=== PATIENT | male | born 1945 | race Two or more races ===

== ENCOUNTER 2017-08-22 01:56 | Inpatient (IN) | payer MEDICARE, MEDICAID ==
[2017-08-22] VITALS (8 sets, daily range): BP systolic 104–156; BP diastolic 64–93
[~2017-08-22] VITALS: Ht 198.1 cm; Wt 104.3 kg
[2017-08-22] MEDS ORDERED: BENAZEPRIL HCL20 MG ORAL (02:00)
[2017-08-22] MEDS ORDERED: PROSCAR5 MG ORAL (02:00)
[2017-08-22] MEDS ORDERED: OMEPRAZOLE20 M2 ORAL (02:00)
[2017-08-22] MEDS ORDERED: TAMSULOSIN HCL0.4 MG ORAL (02:00)
[2017-08-22] MEDS ORDERED: HYDROCHLOROTHIA25 MG ORAL (02:00)
[2017-08-22] MEDS ORDERED: AMLODIPINE BESYL5 MG ORAL (02:00)
[2017-08-22 02:15] LABS: MEAN CORPUSCULAR HEMOGLOBIN 32.6 PG (27.0-31.0); MEAN CORPUSCULAR HGB CONC 34.6 G/DL (32.0-36.0); MEAN CORPUSCULAR VOLUME 94 FL (80-99); MEAN PLATELET VOLUME 8.2 FL (6.5-10.1); PLATELET COUNT 208 K/UL (150-450); RED BLOOD COUNT 5.07 M/UL (4.70-6.10); RED CELL DISTRIBUTION WIDTH 10.3 % (11.6-14.8); WHITE BLOOD COUNT 11.8 K/UL (4.8-10.8)
[2017-08-22 02:33] LABS: ANION GAP 10 mmol/L (5-15); CALCIUM 8.9 MG/DL (8.5-10.1); CARBON DIOXIDE 29 MMOL/L (21-32); CHLORIDE 97 MMOL/L (98-107); CREATININE 1.4 MG/DL (0.55-1.30); POTASSIUM 3.2 MMOL/L (3.5-5.1); SODIUM 136 MMOL/L (136-145)
[2017-08-22 02:44] LABS: ALANINE AMINOTRANSFERASE 84 U/L (12-78); ALBUMIN/GLOBULIN RATIO 0.9 (1.0-2.7); ASPARTATE AMINO TRANSFERASE 99 U/L (15-37); LIPASE 9318 U/L (73-393); TOTAL PROTEIN 7.6 G/DL (6.4-8.2)
[2017-08-22 02:47] LABS: BILIRUBIN,DIRECT 1.8 MG/DL (0.0-0.3)
[2017-08-22] MEDS ORDERED: Morphine Sulfate 4mg/ml Inj IVP ONE (03:15)
[2017-08-22 03:54] LABS: KETONES,URINE NEGATIVE (NEGATIVE); NITRITE,URINE NEGATIVE (NEGATIVE); PH,URINE 8 (4.5-8.0); PROTEIN,URINE NEGATIVE (NEGATIVE); UROBILINOGEN,URINE NORMAL MG/DL (0.0-1.0)
[2017-08-22 04:05] LABS: APPEARANCE,URINE SLIGHTLY CLOUDY; LEUKOCYTE ESTERASE ,URINE 1+ (NEGATIVE)
[2017-08-22 04:06] LABS: BACTERIA,URINE MANY /HPF; RBC,URINE 0 /HPF (0 - 0)
[2017-08-22] MEDS ORDERED: Zosyn 3.375gm inj ONE (05:23)
[2017-08-22] MEDS ORDERED: Piperacillin/Tazobactam 3.375 GM in D5W 110 ML IVPB ONE (05:30)
--- NOTE | 2017-08-22 06:15 | Emergency Room Report ---
History of Present Illness General Chief Complaint: Abdominal Pain Source: Patient, Caregiver Present Illness HPI 72-year-old male presents ED complaining of abdominal pain. roving department end finder at bedside states the symptoms started last night. She gave the patient take-out Swedish food and shortly after patient developed abdominal pain and vomiting. She states patient has a history of acid reflux. Patient describes the pain as burning, epigastric, 5/10, nonradiating. Denies chest pain. Shortness of breath. No fevers or chills. No other aggravating factors. Denies any other associated symptoms Allergies: Coded Allergies: SULFA (SULFONAMIDE ANTIBIOTICS) (Verified Allergy, Unknown, 08/22/17) Patient History Past Medical History: HTN Past Surgical History: none Pertinent Family History: none Social History: Denies: smoking, alcohol use, drug use Immunizations: UTD Reviewed Nursing Documentation: PMH: Agreed, PSxH: Agreed Nursing Documentation-PMH Past Medical History: No History, Except For Hx Hypertension: Yes Review of Systems All Other Systems: negative except mentioned in HPI Physical Exam Vital Signs Date Time Temp Pulse Resp B/P (MAP) Pulse Ox O2 Delivery O2 Flow Rate FiO2 08/22/17 01:53 98.1 79 18 156/87 98 Room Air Sp02 EP Interpretation: reviewed, normal General Appearance: alert, GCS 15, non-toxic, mild distress Head: normocephalic, atraumatic Eyes: bilateral eye normal inspection, bilateral eye PERRL ENT: hearing grossly normal, normal pharynx, no angioedema, normal voice Neck: full range of motion, supple/symm/no masses Respiratory: chest non-tender, lungs clear, normal breath sounds, speaking full sentences Cardiovascular #1: regular rate, rhythm, no edema Cardiovascular #2: 2+ carotid (R), 2+ carotid (L), 2+ radial (R), 2+ radial (L) , 2+ dorsalis pedis (R), 2+ dorsalis pedis (L) Gastrointestinal: normal bowel sounds, soft, non-distended, no guarding, no rebound, tenderness - epigastric Rectal: deferred Genitourinary: normal inspection, no CVA tenderness Musculoskeletal: back normal, gait/station normal, normal range of motion, non- tender Neurologic: alert, oriented x3, responsive, motor strength/tone normal, sensory intact, speech normal Psychiatric: judgement/insight normal, memory normal, mood/affect normal, no suicidal/homicidal ideation Reflexes: 3+ bicep (R), 3+ bicep (L), 3+ tricep (R), 3+ tricep (L), 3+ knee (R) , 3+ knee (L) Skin: normal color, no rash, warm/dry, well hydrated Lymphatic: no adenopathy Medical Decision Making Diagnostic Impression: Primary Impression: Pancreatitis Qualified Codes: K85.10 - Biliary acute pancreatitis without necrosis or infection Additional Impressions: Elevated LFTs Renal insufficiency ER Course Hospital Course 72-year-old male presents to ED with abdominal pain Differential diagnoses include: BPH, cystitis, pyelonephritis, kidney stone Clinical course Patient placed on stretcher. cardiac monitor technician. After initial history and physical I ordered labs, IV fluids, UA, pain medication and CT scan Labs - noted leukocytosis, Hb/Hct stable. Cr elevated. Lipase > 9000, AST/ALT elevated, Tbili and Dbili elevated CT abdomen and pelvis - no definitive evidence of pancreatitis but there is gallbladder sludge and stones with common bile that dilated Discussed case with Dr. New; recommends that we keep patient n.p.o., given IV fluids and Zosyn. Recommends abdominal ultrasound Abdominal ultrasound pending Case discussed with Dr. Clayton and he agreed to accept the patient to his service for further care and support I feel this is a highly complex case requiring extensive working including EKG/ Rhythm strip, Xray/CT/US, Blood/urine lab work, repeat exams while in ED, and administration of strong opiates/narcotics for pain control, admission to hospital or close patient follow up. Diagnosis - pancreatitis, elevated LFTs, renal insufficiency Patient admitted to floor in serious condition Labs Test 08/22/17 02:00 08/22/17 02:55 White Blood Count 11.8 K/UL (4.8-10.8) Red Blood Count 5.07 M/UL (4.70-6.10) Hemoglobin 16.5 G/DL (14.2-18.0) Hematocrit 47.7 % (42.0-52.0) Mean Corpuscular Volume 94 FL (80-99) Mean Corpuscular Hemoglobin 32.6 PG (27.0-31.0) Mean Corpuscular Hemoglobin Concent 34.6 G/DL (32.0-36.0) Red Cell Distribution Width 10.3 % (11.6-14.8) Platelet Count 208 K/UL (150-450) Mean Platelet Volume 8.2 FL (6.5-10.1) Neutrophils (%) (Auto) % (45.0-75.0) Lymphocytes (%) (Auto) % (20.0-45.0) Monocytes (%) (Auto) % (1.0-10.0) Eosinophils (%) (Auto) % (0.0-3.0) Basophils (%) (Auto) % (0.0-2.0) Sodium Level 136 MMOL/L (136-145) Potassium Level 3.2 MMOL/L (3.5-5.1) Chloride Level 97 MMOL/L (98-107) Carbon Dioxide Level 29 MMOL/L (21-32) Anion Gap 10 mmol/L (5-15) Blood Urea Nitrogen 15 mg/dL (7-18) Creatinine 1.4 MG/DL (0.55-1.30) Estimat Glomerular Filtration Rate mL/min (>60) Glucose Level 227 MG/DL (74-106) Calcium Level 8.9 MG/DL (8.5-10.1) Total Bilirubin 2.7 MG/DL (0.2-1.0) Direct Bilirubin 1.8 MG/DL (0.0-0.3) Aspartate Amino Transf (AST/SGOT) 99 U/L (15-37) Alanine Aminotransferase (ALT/SGPT) 84 U/L (12-78) Alkaline Phosphatase 95 U/L (46-116) Total Creatine Kinase 82 U/L (26-308) Creatine Kinase MB 1.0 NG/ML (0.0-3.6) Creatine Kinase MB Relative Index 1.2 Troponin I 0.008 ng/mL (0.000-0.056) Total Protein 7.6 G/DL (6.4-8.2) Albumin 3.5 G/DL (3.4-5.0) Globulin 4.1 g/dL Albumin/Globulin Ratio 0.9 (1.0-2.7) Lipase 9318 U/L (73-393) Urine Color Pale yellow Urine Appearance Slightly cloudy Urine pH 8 (4.5-8.0) Urine Specific [place] 1.010 (1.005-1.035) Urine Protein Negative (NEGATIVE) Urine Glucose (UA) 2+ (NEGATIVE) Urine Ketones Negative (NEGATIVE) Urine Occult Blood Negative (NEGATIVE) Urine Nitrite Negative (NEGATIVE) Urine Bilirubin Negative (NEGATIVE) Urine Urobilinogen Normal MG/DL (0.0-1.0) Urine Leukocyte Esterase 1+ (NEGATIVE) Urine RBC 0 /HPF (0 - 0) Urine WBC 5-10 /HPF (0 - 0) Urine Squamous Epithelial Cells None /LPF (NONE/OCC) Urine Bacteria Many /HPF (NONE) EKG Diagnostic Results Rate: normal Rhythm: NSR ST Segments: no acute changes ASA given to the pt in ED: No Rhythm Strip Diag. Results EP Interpretation: yes Rhythm: NSR, no PVC's, no ectopy CT/MRI/US Diagnostic Results CT/MRI/US Diagnostic Results : Imaging Test Ordered: CT A/P Impression no evidence of pancreatitis. gallbladder sludge, stones noted, CBD dilated Last Vital Signs Date Time Temp Pulse Resp B/P (MAP) Pulse Ox O2 Delivery O2 Flow Rate FiO2 08/22/17 04:51 86 21 156/83 96 Room Air 08/22/17 03:42 98.1 Status: improved Disposition: ADMITTED INPATIENT Condition: Serious Referrals: NON PHYSICIAN (PCP) ALEXIA WILLIS M.D. Aug 22, 2017 06:15
[2017-08-22] MEDS ORDERED: HYDROmorphone 1mg/ml Carpuject IVP PRN (08:45)
[2017-08-22] MEDS ORDERED: D5 1/2NS 1,000 ML IV SCH (08:45)
[2017-08-22] MEDS ORDERED: Pantoprazole Inj IVP SCH (09:00)
--- NOTE | 2017-08-22 09:01 | Diagnostic Imaging Report ---
Indication: Abdominal pain Comparison: None Technique: Contiguous helical CT images through the abdomen and pelvis was performed. No intravenous or oral contrast was administered as per specific orders of the requesting physician. Axial, coronal and sagittal reconstructions were reformatted. CT Dose: Total DLP: 1278 mGycm; Total CTDI volume 4.3 Findings: Exam is limited due to lack of intravenous and oral contrast. The liver appears normal on this limited noncontrast exam. Suspect layering sludge or small noncalcified stones in the gallbladder. Common bile duct is dilated up to 1.2 cm. Correlate for evidence of cholestasis and consider correlation with right upper quadrant ultrasound as clinically warranted. Spleen is normal. Small focal calcifications in the spleen likely from old granulomatous disease. Pancreas is normal. Adrenal glands are normal. Although a suprapubic urinary bladder catheter is present, the urinary bladder is markedly distended. There is mild bilateral hydronephrosis, right greater than left, with uroepithelial thickening but no evidence of obstructing lesion. This may be related to bladder distention. There is right greater than left renal scarring. Bilateral renal cysts are noted. Prostate is enlarged. No evidence of bowel obstruction. Mild colonic diverticulosis without evidence of diverticulitis. Mild stool in the colon. Appendix is normal. No free air or free fluid. Atherosclerotic calcifications of the aorta and its branches. No aortic aneurysm. Multilevel degenerative changes of the spine causing varying degrees of canal and foraminal stenosis. No acute osseous findings. Impression: Although a suprapubic urinary bladder catheter is present, the urinary bladder is markedly distended. Recommend correlation with catheter patency. There is mild bilateral hydronephrosis, right greater than left, with uroepithelial thickening but no evidence of obstructing lesion. This may be related to bladder distention. There is right greater than left renal scarring. Bilateral renal cysts are noted. Suspect layering sludge or small noncalcified stones in the gallbladder. Common bile duct is dilated up to 1.2 cm. Correlate for evidence of cholestasis and consider correlation with right upper quadrant ultrasound as clinically warranted. Otherwise, incidental findings as above.
[2017-08-22] MEDS: D5 1/2NS w/KCl 20mEq 1,000 ML IV SCH ×2 (14:36→22:00)
[2017-08-22] MEDS: Zosyn 3.375gm/50ml Premix 50 ML IVPB SCH ×2 (14:37→20:23)
[2017-08-22] MEDS ORDERED: D5 1/2NS 1000ml IV ONE (14:53)
[2017-08-22] MEDS ORDERED: Tubing IV Secondary IV ONE (14:53)
[2017-08-22] MEDS: Tamsulosin 0.4mg cap ORAL SCH (20:20)
--- NOTE | 2017-08-22 21:30 | Consultation ---
DATE OF CONSULTATION: 08/22/2017 CONSULTING PHYSICIAN: Luis New M.D. REQUESTING PHYSICIAN: Nahid Clayton M.D. REASON FOR CONSULTATION: Abdominal pain. HISTORY OF PRESENT ILLNESS: This is a 72-year-old male, who presented to emergency room for abdominal pain since last night. He stated that the pain was located at epigastrium, no radiation. The pain was associated with nausea and vomiting. He denied any previous history of similar pain. At the present time, the pain has improved. He only has discomfort. PAST MEDICAL HISTORY: He claims to be allergic to sulfa. He denies asthma, diabetes, cardiac and renal diseases. 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 PAST SURGICAL HISTORY: Placement of the suprapubic catheter. MEDICATIONS: Please see the medicine reconciliation form. SOCIAL HISTORY: The patient is a 72-year-old male, who is . He lives at home with the and denies smoking and drinking. At the present time, he is unemployed. REVIEW OF SYSTEMS: Unobtainable due to the language barrier and the patient is obtunded. PHYSICAL EXAMINATION: GENERAL: The patient appeared to be a well-developed and well-nourished 72-year-old male, lying on the bed, in no acute distress. HEENT: Head is normocephalic and atraumatic. Eyes, he is blind in both eyes. Mouth is clear. NECK: There is no palpable thyromegaly or adenopathy. CHEST: Clear to auscultation and percussion. HEART: There is no gallop or murmur. S1 and S2 are within normal limits. ABDOMEN: Soft, flat, and nontender. There is no palpable organomegaly. Bowel sounds are audible. He has a suprapubic catheter. EXTREMITIES: Within normal limits. LABORATORY AND DIAGNOSTIC DATA: The CBC has shown WBC of 11,800 with very mild left shift. Chemistry had shown a blood glucose of 227, creatinine 1.7, total bilirubin of 2.7, direct bilirubin of 1.8, and alkaline phosphatase of 95. SGOT and SGPT are 90 and 80, but the patient has a lipase of 9300. A CAT scan of the abdomen had shown possible stone in the gallbladder with dilated common bile duct. ASSESSMENT: Gallstone pancreatitis. PLAN: At this time, the patient requires to be NPO, on IV fluids, and after the amylase and lipase returned to normal, laparoscopic cholecystectomy can be considered. Luis New M.D. DR: SEBAS JOB#: [id number] CC:
--- NOTE | 2017-08-23 01:00 | Consultation ---
DATE OF CONSULTATION: 08/22/2017 REQUESTING PHYSICIAN: 1Abe Tafoya M.D. 2. . REASON FOR CONSULTATION: Abdominal pain, chest pain and preoperative evaluation for possible surgery. HISTORY OF PRESENT ILLNESS: This is a 72-year-old male. He presented to the emergency room with abdominal pain. He also noted pressure up in his chest, 5/10, described as a burning sensation. He has some nausea. He did not have any vomiting and he denies any shortness of breath. The patient has not had any recent illnesses, fevers or chills. PAST MEDICAL HISTORY: 1. Hypertension. 2. Suprapubic catheter. 3. Obstructive uropathy. MEDICATIONS: Reviewed and reconciled. ALLERGIES: Sulfa. SOCIAL HISTORY: Denies smoking, alcohol, or substance abuse. REVIEW OF SYSTEMS: No history of myocardial infarction or exertional chest pain. No history of rheumatic heart disease. Blood pressure controlled on one medication. No history of seizure or strokes. No known history of diabetes or thyroid disorder. No history of asthma or blood clots in the legs. PHYSICAL EXAMINATION: VITAL SIGNS: Afebrile, blood pressure 156/87, pulse 79, and respiratory rate 18. HEENT: Conjunctivae are pink. Sclerae are anicteric. Oropharynx clear. Mucous membranes moist. NECK: Supple. Jugular venous pressure normal. LUNGS: Clear. CARDIAC: Regular. Normal S1 and S2 with no murmur. ABDOMEN: Soft and nontender. EXTREMITIES: Good pulses. No edema. NEUROLOGIC: Reveals symmetric strength. LABORATORY AND DIAGNOSTIC DATA: Amylase over 9000. Sodium 136, potassium 3.2, bicarbonate 29, BUN 15, creatinine 1.4 and glucose 227. Total bilirubin 2.7. AST and ALT 99/84. Albumin 3.5. White count 11.8 and hemoglobin 16.5. IMPRESSION: 1. Pancreatitis, rule out biliary pathology. 2. Noncardiac chest pain. 3. Hypokalemia. 4. Hyperglycemia likely due to pancreatitis. 5. History of hypertension with labile blood pressure. 6. Suprapubic catheter. 7. Dehydration. PLAN: 1. Hydration. 2. Potassium replacement. 3. Check magnesium. 4. Empiric antibiotics. 5. NPO. 6. Insulin titration per sliding scale. 7. Hold sublingual antihypertensive therapy with hold parameters for low range blood pressure. 8. DVT prophylaxis. Nahid Clayton M.D. DR: SANTOS JOB#: [id number] CC:
[2017-08-23 01:04] VITALS: BP 113/59
[2017-08-23 04:45] VITALS: BP 104/57
[2017-08-23] MEDS: D5 1/2NS w/KCl 20mEq 1,000 ML IV SCH ×3 (05:51→14:38)
[2017-08-23] MEDS: Zosyn 3.375gm/50ml Premix 50 ML IVPB SCH ×2 (05:52→14:38)
[2017-08-23 08:00] VITALS: BP 102/60
[2017-08-23 08:06] LABS: BASOPHILS % (AUTO) 0.5 % (0.0-2.0); EOSINOPHILS % (AUTO) 0.9 % (0.0-3.0); LYMPHOCYTES % (AUTO) 9.8 % (20.0-45.0); MEAN CORPUSCULAR HEMOGLOBIN 32.8 PG (27.0-31.0); MEAN CORPUSCULAR HGB CONC 34.5 G/DL (32.0-36.0); MEAN CORPUSCULAR VOLUME 95 FL (80-99); MEAN PLATELET VOLUME 8.9 FL (6.5-10.1); NEUTROPHILS % (AUTO) 83.8 % (45.0-75.0); PLATELET COUNT 175 K/UL (150-450); RED BLOOD COUNT 4.47 M/UL (4.70-6.10); RED CELL DISTRIBUTION WIDTH 10.8 % (11.6-14.8); WHITE BLOOD COUNT 9.2 K/UL (4.8-10.8)
[2017-08-23 08:37] LABS: ALANINE AMINOTRANSFERASE 205 U/L (12-78); ALBUMIN/GLOBULIN RATIO 0.7 (1.0-2.7); AMYLASE 77 U/L (25-115); ANION GAP 7 mmol/L (5-15); ASPARTATE AMINO TRANSFERASE 112 U/L (15-37); CALCIUM 8.4 MG/DL (8.5-10.1); CARBON DIOXIDE 31 MMOL/L (21-32); CHLORIDE 101 MMOL/L (98-107); CHOLESTEROL 121 MG/DL (< 200); CREATININE 1.6 MG/DL (0.55-1.30); POTASSIUM 3.6 MMOL/L (3.5-5.1); SODIUM 139 MMOL/L (136-145); THYROID STIMULATING HORMONE 0.931 uiU/mL (0.360-3.740); TOTAL PROTEIN 6.6 G/DL (6.4-8.2)
[2017-08-23 08:38] LABS: BILIRUBIN,DIRECT 4.7 MG/DL (0.0-0.3)
--- NOTE | 2017-08-23 08:59 | Diagnostic Imaging Report ---
Indication: Abdominal pain, abnormal liver function test, abnormal renal function tests, elevated lipase, abdominal pain, vomiting Technique: Boo-scale and duplex images of the upper abdomen were obtained Comparison: CT scan of earlier the same day Findings: Exam is somewhat limited due to patient body habitus and overlying bowel gas. Gallbladder demonstrates sludge. What appear to be echogenic small calculi are seen layering dependently. The gallbladder wall is thickened, measuring 5 mm thick. Sonographic Caceres's sign is negative. Common bile duct measures 11 mm in diameter. No intrahepatic biliary ductal dilatation. Liver demonstrates coarsened echogenicity, no focal abnormality. Portal vein and hepatic veins are patent. Pancreas is unremarkable. Spleen is unremarkable. Left kidney measures 12.9 cm in length. Right kidney measures 11 cm length. Both kidneys demonstrate normal echogenicity. There is no hydronephrosis. There are bilateral renal cysts . Non-aneurysmal abdominal aorta . Impression: Gallbladder sludge, probable small gallstones. Gallbladder wall thickening raises concern for acute cholecystitis. Correlate with clinical findings, consider hepatobiliary nuclear scan if there is high clinical suspicion Dilated extrahepatic bile ducts. Downstream obstruction not excludable, although not evident on recent CT. Consider further evaluation with MRCP or hepatobiliary nuclear scanning Bilateral renal cysts incidentally noted Note that the bilateral hydronephrosis described on recent CT is not evident on current exam Coarsened hepatic echogenicity, nonspecific, could indicate hepatocellular disease
[2017-08-23 12:00] VITALS: BP 105/61
--- NOTE | 2017-08-23 13:19 | General Surgery Progress Note ---
General Surgery-Progress Note Subjective Symptoms: improved Objective Last 24 Hour Vital Signs Date Time Temp Pulse Resp B/P (MAP) Pulse Ox O2 Delivery O2 Flow Rate FiO2 08/23/17 12:00 97.8 45 18 105/61 97 Room Air 08/23/17 08:00 98.0 45 20 102/60 95 Room Air 08/23/17 04:45 97.4 50 20 104/57 95 Room Air 08/23/17 01:04 97.8 51 18 113/59 98 Room Air 08/22/17 20:00 98.7 55 18 127/68 95 Room Air 08/22/17 16:00 98.5 74 20 143/78 98 Room Air I&O Intake and Output 08/23/17 08/24/17 19:00 07:00 Intake Total 375 ml Balance 375 ml Intake IV Total 375 ml Respiratory: clear Abdomen: soft, flat, non-tender, present bowel sounds Extremities: no tenderness Laboratory Tests Test 08/23/17 06:55 White Blood Count 9.2 K/UL (4.8-10.8) Red Blood Count 4.47 M/UL (4.70-6.10) L Hemoglobin 14.7 G/DL (14.2-18.0) Hematocrit 42.5 % (42.0-52.0) Mean Corpuscular Volume 95 FL (80-99) Mean Corpuscular Hemoglobin 32.8 PG (27.0-31.0) H Mean Corpuscular Hemoglobin Concent 34.5 G/DL (32.0-36.0) Red Cell Distribution Width 10.8 % (11.6-14.8) L Platelet Count 175 K/UL (150-450) Mean Platelet Volume 8.9 FL (6.5-10.1) Neutrophils (%) (Auto) 83.8 % (45.0-75.0) H Lymphocytes (%) (Auto) 9.8 % (20.0-45.0) L Monocytes (%) (Auto) 5.0 % (1.0-10.0) Eosinophils (%) (Auto) 0.9 % (0.0-3.0) Basophils (%) (Auto) 0.5 % (0.0-2.0) Sodium Level 139 MMOL/L (136-145) Potassium Level 3.6 MMOL/L (3.5-5.1) Chloride Level 101 MMOL/L (98-107) Carbon Dioxide Level 31 MMOL/L (21-32) Anion Gap 7 mmol/L (5-15) Blood Urea Nitrogen 27 mg/dL (7-18) H Creatinine 1.6 MG/DL (0.55-1.30) H Estimat Glomerular Filtration Rate mL/min (>60) Glucose Level 180 MG/DL (74-106) H Calcium Level 8.4 MG/DL (8.5-10.1) L Magnesium Level 1.4 MG/DL (1.8-2.4) L Total Bilirubin 5.4 MG/DL (0.2-1.0) H Direct Bilirubin 4.7 MG/DL (0.0-0.3) H Aspartate Amino Transf (AST/SGOT) 112 U/L (15-37) H Alanine Aminotransferase (ALT/SGPT) 205 U/L (12-78) H Alkaline Phosphatase 107 U/L (46-116) Total Protein 6.6 G/DL (6.4-8.2) Albumin 2.7 G/DL (3.4-5.0) L Globulin 3.9 g/dL Albumin/Globulin Ratio 0.7 (1.0-2.7) L Triglycerides Level 77 MG/DL (0-200) Cholesterol Level 121 MG/DL (< 200) LDL Cholesterol 82 mg/dL (<100) HDL Cholesterol 30 MG/DL (40-60) L Cholesterol/HDL Ratio 4.0 (3.3-4.4) Amylase Level 77 U/L (25-115) Lipase 398 U/L (73-393) H Thyroid Stimulating Hormone (TSH) 0.931 uiU/mL (0.360-3.740) Assessment Additional Comments pancreatitis improved Plan Additional Comments Bili increased to 5.4 with direct bili of 4.7. He requires G I consult and ERCP. ELVIRA BURRIS Aug 23, 2017 13:19
--- NOTE | 2017-08-23 13:58 | GI Initial Consult Note ---
WinklerDiana Mirzaoi N.PAbe 08/23/17 1358: History of Present Illness General Date patient seen: Aug 23, 2017 Time patient seen: 13:45 Reason for Hospitalization: Abdominal Pain Referring physician: PARVEZ ARVIZU Reason for Consultation: PANCREATITIS Present Illness HPI 72-year-old male presents ED complaining of abdominal pain. cooker sulfate at bedside states the symptoms started last night. She gave the patient take-out [place] food and shortly after patient developed abdominal pain and vomiting. She states patient has a history of acid reflux. Patient describes the pain as burning, epigastric, 5/10, nonradiating. Denies chest pain. Shortness of breath. No fevers or chills. No other aggravating factors. Denies any other associated symptoms. GI consulted for pancreatitis. HPI as noted above. ROS limited, patient LAC VIEUX. Pt seen on floor, awake NAD c/o of abdominal pain with no active s/sx of N/V/ D at this time. He presents today with elevated lipase levels 9318, now 318, elevated total bilirubin with transaminitis and hypomagnesium. CT AP reviewed suspect layering sludge or small noncalcified stones in the gallbladder. Common bile duct is dilated up to 1.2 cm. Abdominal U/S reviewed shows common bile duct measures 11 mm in diameter. No intrahepatic biliary ductal dilatation. Unknown history of endoscopic procedures. Home Meds Reported Medications Hydrochlorothiazide* (HYDROCHLOROTHIAZIDE*) 25 Mg Tablet, 25 MG ORAL DAILY, TAB 08/22/17 Finasteride* (PROSCAR*) 5 Mg Tablet, 5 MG ORAL DAILY, #30 TAB 0 Refills 08/22/17 Benazepril Hcl* (BENAZEPRIL HCL*) 20 Mg Tablet, 20 MG ORAL EVERY 12 HOURS, TAB 08/22/17 Amlodipine Besylate* (AMLODIPINE BESYLATE*) 5 Mg Tablet, 5 MG ORAL DAILY, TAB 08/22/17 Omeprazole (OMEPRAZOLE) 20 Mg Capsule.dr, 20 MG ORAL DAILY, CAP 08/22/17 Tamsulosin Hcl (TAMSULOSIN HCL*) 0.4 Mg Cap.er.24h, 0.4 MG ORAL BEDTIME, CAP 08/22/17 Med list reviewed/reconciled: Yes Allergies: Coded Allergies: SULFA (SULFONAMIDE ANTIBIOTICS) (Verified Allergy, Unknown, 08/22/17) Patient History Limited by: other - LAC VIEUX History Provided By: Patient, Medical Record PMH Narrative Past Medical History: HTN Past Surgical History: none Pertinent Family History: none Social History: Denies: smoking, alcohol use, drug use Immunizations: UTD Reviewed Nursing Documentation: PMH: Agreed, PSxH: Agreed Nursing Documentation-PM Past Medical History: No History, Except For Hx Hypertension: Yes Review of Systems All Other Systems: negative except mentioned in HPI Physical Exam Vital Signs Date Time Temp Pulse Resp B/P (MAP) Pulse Ox O2 Delivery O2 Flow Rate FiO2 08/22/17 01:53 98.1 79 18 156/87 98 Room Air Sp02 EP Interpretation: reviewed, normal Labs Laboratory Tests Test 08/23/17 06:55 White Blood Count 9.2 K/UL (4.8-10.8) Red Blood Count 4.47 M/UL (4.70-6.10) L Hemoglobin 14.7 G/DL (14.2-18.0) Hematocrit 42.5 % (42.0-52.0) Mean Corpuscular Volume 95 FL (80-99) Mean Corpuscular Hemoglobin 32.8 PG (27.0-31.0) H Mean Corpuscular Hemoglobin Concent 34.5 G/DL (32.0-36.0) Red Cell Distribution Width 10.8 % (11.6-14.8) L Platelet Count 175 K/UL (150-450) Mean Platelet Volume 8.9 FL (6.5-10.1) Neutrophils (%) (Auto) 83.8 % (45.0-75.0) H Lymphocytes (%) (Auto) 9.8 % (20.0-45.0) L Monocytes (%) (Auto) 5.0 % (1.0-10.0) Eosinophils (%) (Auto) 0.9 % (0.0-3.0) Basophils (%) (Auto) 0.5 % (0.0-2.0) Sodium Level 139 MMOL/L (136-145) Potassium Level 3.6 MMOL/L (3.5-5.1) Chloride Level 101 MMOL/L (98-107) Carbon Dioxide Level 31 MMOL/L (21-32) Anion Gap 7 mmol/L (5-15) Blood Urea Nitrogen 27 mg/dL (7-18) H Creatinine 1.6 MG/DL (0.55-1.30) H Estimat Glomerular Filtration Rate mL/min (>60) Glucose Level 180 MG/DL (74-106) H Calcium Level 8.4 MG/DL (8.5-10.1) L Magnesium Level 1.4 MG/DL (1.8-2.4) L Total Bilirubin 5.4 MG/DL (0.2-1.0) H Direct Bilirubin 4.7 MG/DL (0.0-0.3) H Aspartate Amino Transf (AST/SGOT) 112 U/L (15-37) H Alanine Aminotransferase (ALT/SGPT) 205 U/L (12-78) H Alkaline Phosphatase 107 U/L (46-116) Total Protein 6.6 G/DL (6.4-8.2) Albumin 2.7 G/DL (3.4-5.0) L Globulin 3.9 g/dL Albumin/Globulin Ratio 0.7 (1.0-2.7) L Triglycerides Level 77 MG/DL (0-200) Cholesterol Level 121 MG/DL (< 200) LDL Cholesterol 82 mg/dL (<100) HDL Cholesterol 30 MG/DL (40-60) L Cholesterol/HDL Ratio 4.0 (3.3-4.4) Amylase Level 77 U/L (25-115) Lipase 398 U/L (73-393) H Thyroid Stimulating Hormone (TSH) 0.931 uiU/mL (0.360-3.740) General Appearance: well appearing, no apparent distress, alert, thin, other - LAC VIEUX Head: normocephalic EENT: other - blind Neck: supple Respiratory: normal breath sounds, no respiratory distress Cardiovascular: normal rate Gastrointestinal: normal inspection, non tender, soft, normal bowel sounds, non -distended Rectal: deferred Genitourinary: deferred Musculoskeletal: normal inspection, back normal Neurologic: normal inspection, alert, oriented x3, responsive Psychiatric: normal inspection Skin: normal inspection, normal color, no rash, warm/dry, palpation normal, well hydrated Lymphatic: normal inspection, no adenopathy Current Medications Current Medications Medications (Trade) Dose Ordered Sig/Efren Route PRN Reason Start Time Stop Time Status Last Admin Dose Admin Dextrose/ Electrolytes 1,000 ml @ 100 mls/hr Q10H IV 08/23/17 14:30 09/22/17 14:29 Hydromorphone HCl (Dilaudid) 1 mg Q4H PRN IVP For Pain 08/22/17 08:45 08/29/17 08:44 Magnesium Sulfate 4000 mg/Sodium Chloride 283 ml @ 94.333 mls/ hr ONCE ONCE IV 08/23/17 14:30 08/23/17 17:29 Piperacillin Sod/ Tazobactam Sod 3.375 gm/Dextrose 55 ml @ 13.75 mls/ hr Q8HR IVPB 08/23/17 22:00 08/30/17 21:59 Piperacillin/ Tazobactam/ Dextrose 50 ml @ 12.5 mls/hr Q8HR IVPB 08/22/17 14:00 08/23/17 21:59 08/23/17 05:52 Ranitidine HCl (Zantac) 150 mg BEDTIME ORAL 08/22/17 21:00 09/21/17 20:59 08/22/17 20:20 Tamsulosin HCl (Flomax) 0.4 mg BEDTIME ORAL 08/22/17 21:00 09/21/17 20:59 08/22/17 20:20 GI: Plan Problems: (1) Gallstone pancreatitis (2) Hypomagnesemia (3) Transaminitis (4) Dilated cbd, acquired Plan Abdominal U/S reviewed >> CBD dilation of 11mm elevated lipase >> 9318, now at 398 ERCP scheduled for tomorrow. - hold all blood thinners tonight. maintain NPO + IVFs at this time pain mgmt zofran prn cont H2B cont zosyn electrolyte replacement fu labs, GGTP Discussed with Dr. Pierce. Thank you for this patient referral, we will follow. SARAH PIERCE 08/24/17 1420: History of Present Illness General Reason for Hospitalization: Abdominal Pain Present Illness Home Meds Reported Medications Hydrochlorothiazide* (HYDROCHLOROTHIAZIDE*) 25 Mg Tablet, 25 MG ORAL DAILY, TAB 08/22/17 Finasteride* (PROSCAR*) 5 Mg Tablet, 5 MG ORAL DAILY, #30 TAB 0 Refills 08/22/17 Benazepril Hcl* (BENAZEPRIL HCL*) 20 Mg Tablet, 20 MG ORAL EVERY 12 HOURS, TAB 08/22/17 Amlodipine Besylate* (AMLODIPINE BESYLATE*) 5 Mg Tablet, 5 MG ORAL DAILY, TAB 08/22/17 Omeprazole (OMEPRAZOLE) 20 Mg Capsule.dr, 20 MG ORAL DAILY, CAP 08/22/17 Tamsulosin Hcl (TAMSULOSIN HCL*) 0.4 Mg Cap.er.24h, 0.4 MG ORAL BEDTIME, CAP 08/22/17 Allergies: Coded Allergies: SULFA (SULFONAMIDE ANTIBIOTICS) (Verified Allergy, Unknown, 08/22/17) GI: Plan Plan The patient was seen and examined at bedside and all new and available data was reviewed in the patients chart. I agree with the above findings, impression and plan. (Patient seen earlier today. Signature stamp does not reflect patient encounter time.). - MD Cathi Robin Anh Jj Byrnes Aug 23, 2017 13:58 SARAH PIERCE Aug 24, 2017 14:20
[2017-08-23] MEDS ORDERED: Magnesium Sulfate 4,000 MG in NS 275 ML IV ONE (14:30)
--- NOTE | 2017-08-23 15:17 | History and Physical Report ---
DATE OF ADMISSION: 08/22/2017 CHIEF COMPLAINT: Pancreatitis. HISTORY OF PRESENT ILLNESS: The patient is a 72-year-old male. He has a history of hypertension and obstructive uropathy, status post suprapubic catheter. He presented with complaints of one to two days of abdominal pain. The patient is a poor historian. According to his hot kettle tender, he developed abdominal pain. He called paramedics. On evaluation in the emergency room, the patient had amylase over 9000. He had a CT scan of the abdomen. It showed sludge and some small noncalcified stones in the gallbladder. The patient currently is pain free. PAST MEDICAL HISTORY: As above. PAST SURGICAL HISTORY: Suprapubic catheter. CURRENT MEDICATIONS: Reconciled and reviewed. ALLERGIES: Sulfa. FAMILY HISTORY: Noncontributory. SOCIAL HISTORY: There is no known history of tobacco, ethanol, or drugs. REVIEW OF SYSTEMS: GENERAL: No fever or chills. HEENT: No headaches or visual changes. CARDIOPULMONARY: No chest pain or shortness of breath. GASTROINTESTINAL: Positive abdominal pain. No nausea, no vomiting, no melena, and no bright red blood per rectum. GENITOURINARY: No urgency or frequency. Positive history of suprapubic catheter. MUSCULOSKELETAL: No joint pain or swelling. NEUROLOGIC: No evidence of seizures. PHYSICAL EXAMINATION: VITAL SIGNS: Temperature 98 degrees, blood pressure 104/47, pulse 50, and respirations 20. GENERAL: The patient is a well-developed male, in no apparent distress. HEART: Regular rate and rhythm. LUNGS: Clear. ABDOMEN: Soft, nontender, and nondistended. EXTREMITIES: Without clubbing, cyanosis, or edema. LABORATORY DATA: White count was 12. Potassium 3.2 and creatinine was 1.4. Total bilirubin 2.7, direct bilirubin of 1.8. AST 99 and ALT of 84. Lipase of 9000. ASSESSMENT: This is a pleasant male, admitted with complaints of pancreatitis. 1. Pancreatitis. 2. Elevated liver function tests. 3. History of gallstones. 4. Suprapubic catheter. 5. Hypertension. 6. Bradycardia. PLAN: NPO, IV hydration, IV pain medications, surgical evaluation, Cardiology evaluation. Check thyroid function test. The plan of care will be determined after discussion with the consulting surgeon. Tin Tafoya M.D. DR: MICHAEL JOB#: [id number] CC:
[2017-08-23 16:00] VITALS: BP 116/63
[2017-08-23 20:00] VITALS: BP 134/73
[2017-08-23] MEDS: Tamsulosin 0.4mg cap ORAL SCH (20:29)
[2017-08-23] MEDS: Piperacillin/Tazobactam 3.375 GM in D5W 55 ML IVPB SCH (22:04)
[2017-08-24] VITALS (17 sets, daily range): BP systolic 119–150; BP diastolic 54–86
[2017-08-24] MEDS: D5 1/2NS w/KCl 20mEq 1,000 ML IV SCH ×3 (00:33→21:27)
[2017-08-24] MEDS: Piperacillin/Tazobactam 3.375 GM in D5W 55 ML IVPB SCH ×2 (05:48→13:06)
[2017-08-24] MEDS ORDERED: Iothalamate Meglumine 60% 30ML INJ ONE (06:51)
[2017-08-24] MEDS ORDERED: Indomethacin 50mg Supp ONE (06:52)
[2017-08-24] MEDS ORDERED: Ketorolac 30mg Inj ONE (07:00)
[2017-08-24] MEDS ORDERED: Zemuron 50mg/5ml Inj IV ONE (07:00)
[2017-08-24] MEDS ORDERED: fentaNYL 100 mcg/2 mL IV ONE (07:00)
[2017-08-24] MEDS ORDERED: Succinylcholine 20mg/ml 10ml vial ONE (07:00)
[2017-08-24] MEDS ORDERED: NS Irrig 1000ml ONE (07:00)
[2017-08-24] MEDS ORDERED: Morphine Sulfate 10mg/ml Inj ONE (07:00)
[2017-08-24] MEDS ORDERED: Midazolam 2mg/2ml Inj ONE ×2 (07:00→19:02)
[2017-08-24] MEDS ORDERED: LR 1000ml ONE (07:00)
[2017-08-24 07:33] LABS: BASOPHILS % (AUTO) 0.9 % (0.0-2.0); EOSINOPHILS % (AUTO) 2.4 % (0.0-3.0); LYMPHOCYTES % (AUTO) 20.8 % (20.0-45.0); MEAN CORPUSCULAR HGB CONC 35.8 G/DL (32.0-36.0); MEAN CORPUSCULAR VOLUME 95 FL (80-99); MEAN PLATELET VOLUME 8.6 FL (6.5-10.1); NEUTROPHILS % (AUTO) 66.9 % (45.0-75.0); PLATELET COUNT 175 K/UL (150-450); RED BLOOD COUNT 4.56 M/UL (4.70-6.10); RED CELL DISTRIBUTION WIDTH 10.8 % (11.6-14.8); WHITE BLOOD COUNT 5.9 K/UL (4.8-10.8)
[2017-08-24] MEDS ORDERED: Tubing IV Extension IV ONE (07:33)
[2017-08-24] MEDS ORDERED: NS 500ML IV ONE (07:33)
--- NOTE | 2017-08-24 07:40 | Pre-Procedure Note/Attestation ---
Pre-Procedure Note/Attestation Complete Prior to Procedure Planned Procedure: not applicable Procedure Narrative: ERCP Indications for Procedure Pre-Operative Diagnosis: cholangitis Attestation I attest that I discussed the nature of the procedure; its benefits; risks and complications; and alternatives (and the risks and benefits of such alternatives ), prior to the procedure, with the patient (or the patient's legal product representative). I attest that, if there was a reasonable possibility of needing a blood transfusion, the patient (or the patient's legal product representative) was given the [facility] standardized written summary, pursuant to the [place] Blood Safety Act ([place] Health and Safety Code # 1645, as amended). I attest that I re-evaluated the patient just prior to the surgery and that there has been no change in the patient's H&P, except as documented below: SARAH PIERCE Aug 24, 2017 07:40
--- NOTE | 2017-08-24 07:44 | General Progress Note ---
Assessment/Plan Assessment/Plan Assessment - Gallstone pancreatitis - Biliary ductal dilation - OBS - abnormal LFT Recommendations - NPO - IVF - Follow labs - ERCP today Subjective Allergies: Coded Allergies: SULFA (SULFONAMIDE ANTIBIOTICS) (Verified Allergy, Unknown, 08/22/17) Subjective Confused but comfortable denies abd pain for ERCP today Objective Last 24 Hour Vital Signs Date Time Temp Pulse Resp B/P (MAP) Pulse Ox O2 Delivery O2 Flow Rate FiO2 08/24/17 04:00 98.3 51 19 141/70 95 Room Air 08/24/17 00:00 98.6 60 18 129/72 97 Room Air 08/23/17 20:00 98.5 54 18 134/73 95 Room Air 08/23/17 16:00 97.7 51 19 116/63 98 Room Air 08/23/17 12:00 97.8 45 18 105/61 97 Room Air 08/23/17 08:00 98.0 45 20 102/60 95 Room Air Laboratory Tests 08/24/17 07:10: White Blood Count [Pending], Red Blood Count [Pending], Hemoglobin [Pending], Hematocrit [Pending], Mean Corpuscular Volume [Pending], Mean Corpuscular Hemoglobin [Pending], Mean Corpuscular Hemoglobin Concent [Pending], Red Cell Distribution Width [Pending], Platelet Count [Pending], Mean Platelet Volume [ Pending], Neutrophils (%) (Auto) [Pending], Lymphocytes (%) (Auto) [Pending], Monocytes (%) (Auto) [Pending], Eosinophils (%) (Auto) [Pending], Basophils (%) (Auto) [Pending], Prothrombin Time [Pending], Prothromb Time International Ratio [Pending], Activated Partial Thromboplast Time [Pending], Sodium Level [ Pending], Potassium Level [Pending], Chloride Level [Pending], Carbon Dioxide Level [Pending], Blood Urea Nitrogen [Pending], Creatinine [Pending], Estimat Glomerular Filtration Rate [Pending], Glucose Level [Pending], Calcium Level [ Pending], Total Bilirubin [Pending], Direct Bilirubin [Pending], Gamma Glutamyl Transpeptidase [Pending], Aspartate Amino Transf (AST/SGOT) [Pending], Alanine Aminotransferase (ALT/SGPT) [Pending], Alkaline Phosphatase [Pending], Total Protein [Pending], Albumin [Pending], Globulin [Pending], Amylase Level [Pending ], Lipase [Pending] Height (Feet): 6 Height (Inches): 6.00 Weight (Pounds): 230 Objective WDWN NCAT supple CTA RRR Abd soft ND NT no edema OBS MAKSIM ZIMMERMAN Aug 24, 2017 07:44
--- NOTE | 2017-08-24 07:45 | Progress Note ---
DATE: 08/23/2017 CARDIOLOGY PROGRESS NOTE SUBJECTIVE: The patient has no abdominal pain. No nausea or vomiting. He continues to have abnormal liver function studies. OBJECTIVE: VITAL SIGNS: Blood pressure is 134/73, pulse rate 54, respiratory rate 18, and afebrile. NECK: Supple. LUNGS: Clear. CARDIAC: Regular. Slow rate. Normal S1 and S2. ABDOMEN: Soft. Mild tenderness in mid-epigastric region. EXTREMITIES: No edema. LABORATORY DATA: Lipase is down to 398. Magnesium 1.4. BUN 27 and creatinine 1.6. Liver function studies are increasing with alkaline phosphatase of 107. AST and ALT 112 and 205. Albumin 2.7. IMPRESSION: 1. Probable gallstone pancreatitis. 2. Transaminitis. 3. Dilated common bile duct. 4. Hypomagnesemia. 5. Moderate protein-calorie malnutrition. 6. Acute on chronic renal failure. PLAN: 1. Hydration. 2. NPO. 3. Antiemetic. 4. Empiric antibiotics. 5. ERCP, per GI consult. 6. DVT and stress ulcer prophylaxis. Nahid Clayton M.D. DR: Romana JOB#: [id number] CC:
[2017-08-24 07:59] LABS: INR 1.1 (0.9-1.1); PROTHROMBIN TIME 11.9 SEC (9.30-11.50)
[2017-08-24 08:10] LABS: ALANINE AMINOTRANSFERASE 152 U/L (12-78); ALBUMIN/GLOBULIN RATIO 0.7 (1.0-2.7); ANION GAP 7 mmol/L (5-15); ASPARTATE AMINO TRANSFERASE 64 U/L (15-37); BILIRUBIN,DIRECT 1.6 MG/DL (0.0-0.3); CALCIUM 8.2 MG/DL (8.5-10.1); CARBON DIOXIDE 27 MMOL/L (21-32); CHLORIDE 105 MMOL/L (98-107); CREATININE 1.3 MG/DL (0.55-1.30); LIPASE 259 U/L (73-393); SODIUM 139 MMOL/L (136-145); TOTAL PROTEIN 6.7 G/DL (6.4-8.2)
--- NOTE | 2017-08-24 08:42 | General Progress Note ---
Assessment/Plan Problem List: (1) Renal insufficiency ICD Codes: N28.9 - Disorder of kidney and ureter, unspecified SNOMED: 184762879, 769909578 (2) Elevated LFTs ICD Codes: R79.89 - Other specified abnormal findings of blood chemistry SNOMED: 190052609, 942423945 (3) Pancreatitis ICD Codes: K85.90 - Acute pancreatitis without necrosis or infection, unspecified SNOMED: 37697451 Qualifiers: Qualified Codes: K85.10 - Biliary acute pancreatitis without necrosis or infection (4) Transaminitis ICD Codes: R74.0 - Nonspecific elevation of levels of transaminase and lactic acid dehydrogenase [LDH] SNOMED: 171937251 (5) Gallstone pancreatitis ICD Codes: K85.10 - Biliary acute pancreatitis without necrosis or infection SNOMED: 99922299 (6) Dilated cbd, acquired ICD Codes: K83.8 - Other specified diseases of biliary tract SNOMED: 288721181 Status: stable, progressing Assessment/Plan ivf pain rx as needed antiemetics npo abx ercp Subjective ROS Limited/Unobtainable: No Constitutional: Reports: malaise, weakness HEENT: Reports: no symptoms Cardiovascular: Reports: no symptoms Respiratory: Reports: no symptoms Gastrointestinal/Abdominal: Reports: abdominal pain Genitourinary: Reports: no symptoms Neurologic/Psychiatric: Reports: no symptoms Endocrine: Reports: no symptoms Hematologic/Lymphatic: Reports: no symptoms Allergies: Coded Allergies: SULFA (SULFONAMIDE ANTIBIOTICS) (Verified Allergy, Unknown, 08/22/17) All Systems: reviewed and negative except above Subjective npo for ercp. denies pain. no nausea or vomiting. Objective Last 24 Hour Vital Signs Date Time Temp Pulse Resp B/P (MAP) Pulse Ox O2 Delivery O2 Flow Rate FiO2 08/24/17 04:00 98.3 51 19 141/70 95 Room Air 08/24/17 00:00 98.6 60 18 129/72 97 Room Air 08/23/17 20:00 98.5 54 18 134/73 95 Room Air 08/23/17 16:00 97.7 51 19 116/63 98 Room Air 08/23/17 12:00 97.8 45 18 105/61 97 Room Air Laboratory Tests 08/24/17 07:10: White Blood Count 5.9, Red Blood Count 4.56L, Hemoglobin 15.5, Hematocrit 43.3, Mean Corpuscular Volume 95, Mean Corpuscular Hemoglobin 34.0H, Mean Corpuscular Hemoglobin Concent 35.8, Red Cell Distribution Width 10.8L, Platelet Count 175, Mean Platelet Volume 8.6, Neutrophils (%) (Auto) 66.9, Lymphocytes (%) (Auto) 20.8, Monocytes (%) (Auto) 9.0, Eosinophils (%) (Auto) 2.4, Basophils (%) (Auto ) 0.9, Prothrombin Time 11.9H, Prothromb Time International Ratio 1.1, Activated Partial Thromboplast Time 26, Sodium Level 139, Potassium Level 3.0L, Chloride Level 105, Carbon Dioxide Level 27, Anion Gap 7, Blood Urea Nitrogen 16 , Creatinine 1.3, Estimat Glomerular Filtration Rate , Glucose Level 113H, Calcium Level 8.2L, Total Bilirubin 2.4H, Direct Bilirubin 1.6H, Gamma Glutamyl Transpeptidase 439H, Aspartate Amino Transf (AST/SGOT) 64H, Alanine Aminotransferase (ALT/SGPT) 152H, Alkaline Phosphatase 111, Total Protein 6.7, Albumin 2.7L, Globulin 4.0, Albumin/Globulin Ratio 0.7L, Amylase Level [Pending] , Lipase 259 Height (Feet): 6 Height (Inches): 6.00 Weight (Pounds): 230 General Appearance: WD/WN, alert EENT: normal ENT inspection Neck: non-tender, normal alignment Cardiovascular: normal peripheral pulses, normal rate, regular rhythm Respiratory/Chest: chest wall non-tender, lungs clear, normal breath sounds, no respiratory distress, no accessory muscle use Abdomen: normal bowel sounds, non tender, soft, no organomegaly Edema: no edema noted Arm (L), no edema noted Arm (R), no edema noted Leg (L), no edema noted Leg (R), no edema noted Pedal (L), no edema noted Pedal (R), no edema noted Generalized ROSALIE MORATAYA Aug 24, 2017 08:42
--- NOTE | 2017-08-24 08:44 | Endoscopy Procedure Note ---
Endoscopy Procedure Note Indication for Procedure: choledocholithiasis Procedures Performed: ERCP Operative Findings/Diagnosis: same Specimen: none Pt Tolerated Procedure Well: Yes Estimated Blood Loss: none Anesthesiologist: johny Anesthesia: MAC Implant(s) used?: No 50 yrs or older w/o bx or poly: Not Applicable 10yrs. F/U not recommended: Not Applicable SARAH PIERCE Aug 24, 2017 08:44
--- NOTE | 2017-08-24 08:57 | Immediate Post-Op Evaluation ---
Immediate Post-Op Evalulation Immediate Post-Op Evalulation Procedure: ERCP Date of Evaluation: Aug 24, 2017 Time of Evaluation: 08:38 IV Fluids: 400 Blood Pressure Systolic: 133 Blood Pressure Diastolic: 83 Pulse Rate: 60 Respiratory Rate: 14 O2 Sat by Pulse Oximetry: 97 Temperature (Fahrenheit): 98.5 Pain Score (1-10): 0 Nausea: No Vomiting: No Complications none Patient Status: awake, reacts, patent Hydration Status: adequate Drug: none SUELLEN HARLEY CRNA Aug 24, 2017 08:57
--- NOTE | 2017-08-24 08:59 | Anethesia Preoperative Eval ---
Anesthesia Pre-op PMH/ROS General Date of Evaluation: Aug 24, 2017 Time of Evaluation: 07:50 Anesthesiologist: amador ASA Score: ASA 2 Mallampati Score Class I : Soft palate, uvula, fauces, pillars visible Class II: Soft palate, uvula, fauces visible Class III: Soft palate, base of uvula visible Class IV: Only hard plate visible Mallampati Classification: Class III Surgeon: edward Diagnosis: gall stones Surgical Procedure: ERCP Anesthesia History: none Family History: no anesthesia problems Allergies: Coded Allergies: SULFA (SULFONAMIDE ANTIBIOTICS) (Verified Allergy, Unknown, 08/22/17) Medications: see eMAR Past Medical History Cardiovascular: Reports: HTN Pulmonary: Denies: asthma, COPD, NELL, other Gastrointestinal/Genitourinary: Denies: GERD, CRI, ESRD, other Neurologic/Psychiatric: Denies: dementia, CVA, depression/anxiety, TIA, other Endocrine: Denies: DM, hypothyroidism, steroids, other HEENT: Denies: cataract (L), cataract (R), glaucoma, [place] (L), [place] (R), other Hematology/Immune: Denies: anemia, DVT, bleeding disorder, other Musculoskeletal/Integumentary: Denies: OA, RA, DJD, DDD, edema, other PMH Narrative: legally blind/hard of hearing PSxH Narrative: prostate/bladder? Anesthesia Pre-op Phys. Exam Physician Exam Last Vital Signs Date Time Temp Pulse Resp B/P (MAP) Pulse Ox O2 Delivery O2 Flow Rate FiO2 08/24/17 08:50 58 16 140/81 95 Nasal Cannula 2.0 08/24/17 08:32 98.5 Constitutional: NAD Neurologic: CN 2-12 intact Cardiovascular: RRR Respiratory: CTA Gastrointestinal: S/NT/ND Airway Exam Mallampati Classification 3 Mallampati Score: Class III Neck: normal ROM: full Dentures: no upper, no lower Anesthesia Pre-op A/P Labs Hematology Test 08/24/17 07:10 White Blood Count 5.9 K/UL (4.8-10.8) Red Blood Count 4.56 M/UL (4.70-6.10) L Hemoglobin 15.5 G/DL (14.2-18.0) Hematocrit 43.3 % (42.0-52.0) Mean Corpuscular Volume 95 FL (80-99) Mean Corpuscular Hemoglobin 34.0 PG (27.0-31.0) H Mean Corpuscular Hemoglobin Concent 35.8 G/DL (32.0-36.0) Red Cell Distribution Width 10.8 % (11.6-14.8) L Platelet Count 175 K/UL (150-450) Mean Platelet Volume 8.6 FL (6.5-10.1) Neutrophils (%) (Auto) 66.9 % (45.0-75.0) Lymphocytes (%) (Auto) 20.8 % (20.0-45.0) Monocytes (%) (Auto) 9.0 % (1.0-10.0) Eosinophils (%) (Auto) 2.4 % (0.0-3.0) Basophils (%) (Auto) 0.9 % (0.0-2.0) Coagulation Test 08/24/17 07:10 Prothrombin Time 11.9 SEC (9.30-11.50) H Prothromb Time International Ratio 1.1 (0.9-1.1) Activated Partial Thromboplast Time 26 SEC (23-33) Chemistry Test 08/24/17 07:10 Sodium Level 139 MMOL/L (136-145) Potassium Level 3.0 MMOL/L (3.5-5.1) L Chloride Level 105 MMOL/L (98-107) Carbon Dioxide Level 27 MMOL/L (21-32) Anion Gap 7 mmol/L (5-15) Blood Urea Nitrogen 16 mg/dL (7-18) Creatinine 1.3 MG/DL (0.55-1.30) Estimat Glomerular Filtration Rate mL/min (>60) Glucose Level 113 MG/DL (74-106) H Calcium Level 8.2 MG/DL (8.5-10.1) L Total Bilirubin 2.4 MG/DL (0.2-1.0) H Direct Bilirubin 1.6 MG/DL (0.0-0.3) H Gamma Glutamyl Transpeptidase 439 U/L (5-85) H Aspartate Amino Transf (AST/SGOT) 64 U/L (15-37) H Alanine Aminotransferase (ALT/SGPT) 152 U/L (12-78) H Alkaline Phosphatase 111 U/L (46-116) Total Protein 6.7 G/DL (6.4-8.2) Albumin 2.7 G/DL (3.4-5.0) L Globulin 4.0 g/dL Albumin/Globulin Ratio 0.7 (1.0-2.7) L Amylase Level Pending Lipase 259 U/L (73-393) Studies Pre-op Studies: EKG - sr Risk Assessment & Plan Assessment: denies changes in health/used paper counter for consent. Plan: mac Status Change Before Surgery: No Pre-Antibiotics Drug: none SUELLEN HARLEY CRNA Aug 24, 2017 08:59
--- NOTE | 2017-08-24 09:18 | 48 Hour Post Anesthesia Eval ---
Post Anesthesia Evaluation Procedure: ERCP Date of Evaluation: Aug 24, 2017 Time of Evaluation: 09:17 Blood Pressure Systolic: 147 0: 86 Pulse Rate: 70 Respiratory Rate: 14 O2 Sat by Pulse Oximetry: 97 Airway: patent Nausea: No Vomiting: No Hydration Status: adequate Cardiopulmonary Status: stable Mental Status/LOC: patient returned to baseline Post-Anesthesia Complications: none Follow-up care needed: N/A SUELLEN HARLEY CRNA Aug 24, 2017 09:18
--- NOTE | 2017-08-24 11:44 | Diagnostic Imaging Report ---
Indication: PAIN, pancreatitis, abdominal pain, abnormal liver function tests, abnormal recent cross-sectional imaging studies Technique: Intraprocedural images Comparison: None Findings: Intraprocedural images demonstrate opacification of upper limits of normal caliber, bile duct, common hepatic duct and central intrahepatic ducts. Subsequent images demonstrate placement of a stone extraction balloon catheter. Impression: Intraoperative imaging, as described
--- NOTE | 2017-08-24 12:31 | Anethesia Preoperative Eval ---
Anesthesia Pre-op PMH/ROS General Date of Evaluation: Aug 24, 2017 Time of Evaluation: 12:25 Anesthesiologist: Rosa ASA Score: ASA 3 Mallampati Score Class I : Soft palate, uvula, fauces, pillars visible Class II: Soft palate, uvula, fauces visible Class III: Soft palate, base of uvula visible Class IV: Only hard plate visible Mallampati Classification: Class III Surgeon: Virgen Diagnosis: Symptomatic cholelithiasis Surgical Procedure: Laparoscopic cholecysterctomy Anesthesia History: none Family History: no anesthesia problems Allergies: Coded Allergies: SULFA (SULFONAMIDE ANTIBIOTICS) (Verified Allergy, Unknown, 08/22/17) Medications: see eMAR Past Medical History Cardiovascular: Reports: HTN - stable, Denies: CAD, [place], valve dz, arrhythmia, other Pulmonary: Denies: asthma, COPD, NELL, other Gastrointestinal/Genitourinary: Reports: GERD, 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, BPH with dilated bladder and urinary retention, Denies: ESRD, other Neurologic/Psychiatric: Denies: dementia, CVA, depression/anxiety, TIA, other Endocrine: Denies: DM, hypothyroidism, steroids, other HEENT: Reports: other - 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 Exam Physician Exam Last Vital Signs Date Time Temp Pulse Resp B/P (MAP) Pulse Ox O2 Delivery O2 Flow Rate FiO2 08/24/17 11:27 97.8 58 20 138/81 92 Room Air 08/24/17 08:50 2.0 Constitutional: NAD Neurologic: CN 2-12 intact Cardiovascular: RRR Respiratory: CTA Gastrointestinal: other - slightly tender Airway Exam Mallampati Score: Class III MO: limited Neck: stiff ROM: limited Teeth: missing Dentures: no upper, no lower Anesthesia Pre-op A/P Labs Hematology Test 08/24/17 07:10 White Blood Count 5.9 K/UL (4.8-10.8) Red Blood Count 4.56 M/UL (4.70-6.10) L Hemoglobin 15.5 G/DL (14.2-18.0) Hematocrit 43.3 % (42.0-52.0) Mean Corpuscular Volume 95 FL (80-99) Mean Corpuscular Hemoglobin 34.0 PG (27.0-31.0) H Mean Corpuscular Hemoglobin Concent 35.8 G/DL (32.0-36.0) Red Cell Distribution Width 10.8 % (11.6-14.8) L Platelet Count 175 K/UL (150-450) Mean Platelet Volume 8.6 FL (6.5-10.1) Neutrophils (%) (Auto) 66.9 % (45.0-75.0) Lymphocytes (%) (Auto) 20.8 % (20.0-45.0) Monocytes (%) (Auto) 9.0 % (1.0-10.0) Eosinophils (%) (Auto) 2.4 % (0.0-3.0) Basophils (%) (Auto) 0.9 % (0.0-2.0) Coagulation Test 08/24/17 07:10 Prothrombin Time 11.9 SEC (9.30-11.50) H Prothromb Time International Ratio 1.1 (0.9-1.1) Activated Partial Thromboplast Time 26 SEC (23-33) Chemistry Test 08/24/17 07:10 Sodium Level 139 MMOL/L (136-145) Potassium Level 3.0 MMOL/L (3.5-5.1) L Chloride Level 105 MMOL/L (98-107) Carbon Dioxide Level 27 MMOL/L (21-32) Anion Gap 7 mmol/L (5-15) Blood Urea Nitrogen 16 mg/dL (7-18) Creatinine 1.3 MG/DL (0.55-1.30) Estimat Glomerular Filtration Rate mL/min (>60) Glucose Level 113 MG/DL (74-106) H Calcium Level 8.2 MG/DL (8.5-10.1) L Total Bilirubin 2.4 MG/DL (0.2-1.0) H Direct Bilirubin 1.6 MG/DL (0.0-0.3) H Gamma Glutamyl Transpeptidase 439 U/L (5-85) H Aspartate Amino Transf (AST/SGOT) 64 U/L (15-37) H Alanine Aminotransferase (ALT/SGPT) 152 U/L (12-78) H Alkaline Phosphatase 111 U/L (46-116) Total Protein 6.7 G/DL (6.4-8.2) Albumin 2.7 G/DL (3.4-5.0) L Globulin 4.0 g/dL Albumin/Globulin Ratio 0.7 (1.0-2.7) L Amylase Level 44 U/L (25-115) Lipase 259 U/L (73-393) Studies Pre-op Studies: EKG - SR Risk Assessment & Plan Assessment: ASA 3 Plan: GA with ETT Status Change Before Surgery: No Pre-Antibiotics Drug: as scheduled GRACE CASANOVA M.D. Aug 24, 2017 12:31
[2017-08-24] MEDS ORDERED: Propofol 200mg/20ml IV ONE (16:50)
[2017-08-24] MEDS ORDERED: Bupivacaine 0.25% Inj 30ml INJ ONE (16:50)
--- NOTE | 2017-08-24 17:20 | Pre-Procedure Note/Attestation ---
Pre-Procedure Note/Attestation Complete Prior to Procedure Planned Procedure: not applicable Procedure Narrative: Laparoscopic Cholecystectomy possible open Cholecystectomy Indications for Procedure Pre-Operative Diagnosis: Cholecystitis & Cholelithiasis Attestation I attest that I discussed the nature of the procedure; its benefits; risks and complications; and alternatives (and the risks and benefits of such alternatives ), prior to the procedure, with the patient (or the patient's legal mortician supplies sales representative). I attest that, if there was a reasonable possibility of needing a blood transfusion, the patient (or the patient's legal mortician supplies sales representative) was given the [facility] standardized written summary, pursuant to the Carroll Kurtis Blood Safety Act ([place] Health and Safety Code # 1645, as amended). I attest that I re-evaluated the patient just prior to the surgery and that there has been no change in the patient's H&P, except as documented below: ELVIRA BURRIS Aug 24, 2017 17:20
--- NOTE | 2017-08-24 17:23 | General Surgery Progress Note ---
General Surgery-Progress Note Subjective Symptoms: improved Additional Comments ERCP this AM showed 4-5 stones which was remoned by Dr. Saenz Objective Last 24 Hour Vital Signs Date Time Temp Pulse Resp B/P (MAP) Pulse Ox O2 Delivery O2 Flow Rate FiO2 08/24/17 16:22 97.7 53 20 150/81 96 Room Air 08/24/17 11:27 97.8 58 20 138/81 92 Room Air 08/24/17 09:18 70 14 97 08/24/17 09:10 60 16 147/86 96 Room Air 08/24/17 09:00 61 16 142/86 92 Room Air 08/24/17 08:57 60 14 97 08/24/17 08:50 58 16 140/81 95 Nasal Cannula 2.0 08/24/17 08:45 59 16 131/83 95 Nasal Cannula 2.0 08/24/17 08:40 60 16 135/83 96 Nasal Cannula 3.0 08/24/17 08:32 98.5 60 16 133/83 96 Nasal Cannula 3.0 08/24/17 04:00 98.3 51 19 141/70 95 Room Air 08/24/17 00:00 98.6 60 18 129/72 97 Room Air 08/23/17 20:00 98.5 54 18 134/73 95 Room Air I&O Intake and Output 08/24/17 08/25/17 19:00 07:00 Intake Total 1540 ml Output Total 700 ml Balance 840 ml Intake Oral 340 ml IV Total 1200 ml Output Urine Total 700 ml # Voids 1 Respiratory: clear Abdomen: soft, flat, non-tender, present bowel sounds Extremities: no tenderness Laboratory Tests Test 08/24/17 07:10 White Blood Count 5.9 K/UL (4.8-10.8) Red Blood Count 4.56 M/UL (4.70-6.10) L Hemoglobin 15.5 G/DL (14.2-18.0) Hematocrit 43.3 % (42.0-52.0) Mean Corpuscular Volume 95 FL (80-99) Mean Corpuscular Hemoglobin 34.0 PG (27.0-31.0) H Mean Corpuscular Hemoglobin Concent 35.8 G/DL (32.0-36.0) Red Cell Distribution Width 10.8 % (11.6-14.8) L Platelet Count 175 K/UL (150-450) Mean Platelet Volume 8.6 FL (6.5-10.1) Neutrophils (%) (Auto) 66.9 % (45.0-75.0) Lymphocytes (%) (Auto) 20.8 % (20.0-45.0) Monocytes (%) (Auto) 9.0 % (1.0-10.0) Eosinophils (%) (Auto) 2.4 % (0.0-3.0) Basophils (%) (Auto) 0.9 % (0.0-2.0) Prothrombin Time 11.9 SEC (9.30-11.50) H Prothromb Time International Ratio 1.1 (0.9-1.1) Activated Partial Thromboplast Time 26 SEC (23-33) Sodium Level 139 MMOL/L (136-145) Potassium Level 3.0 MMOL/L (3.5-5.1) L Chloride Level 105 MMOL/L (98-107) Carbon Dioxide Level 27 MMOL/L (21-32) Anion Gap 7 mmol/L (5-15) Blood Urea Nitrogen 16 mg/dL (7-18) Creatinine 1.3 MG/DL (0.55-1.30) Estimat Glomerular Filtration Rate mL/min (>60) Glucose Level 113 MG/DL (74-106) H Calcium Level 8.2 MG/DL (8.5-10.1) L Total Bilirubin 2.4 MG/DL (0.2-1.0) H Direct Bilirubin 1.6 MG/DL (0.0-0.3) H Gamma Glutamyl Transpeptidase 439 U/L (5-85) H Aspartate Amino Transf (AST/SGOT) 64 U/L (15-37) H Alanine Aminotransferase (ALT/SGPT) 152 U/L (12-78) H Alkaline Phosphatase 111 U/L (46-116) Total Protein 6.7 G/DL (6.4-8.2) Albumin 2.7 G/DL (3.4-5.0) L Globulin 4.0 g/dL Albumin/Globulin Ratio 0.7 (1.0-2.7) L Amylase Level 44 U/L (25-115) Lipase 259 U/L (73-393) Assessment Additional Comments Cholecystitis & Cholelithiasis Plan Additional Comments Lap Autumn this PM risk & benefits were explained to family ZHAOARCHANA HUMPHREYCECILIA Aug 24, 2017 17:23
[2017-08-24] MEDS ORDERED: Zosyn 3.375gm/50ml Premix 50 ML IVPB ONE (18:00)
[2017-08-24] MEDS ORDERED: DiphenhydrAMINE 50mg/ml Inj IVP PRN (18:30)
--- NOTE | 2017-08-24 18:41 | Brief Operative Note ---
Immediate Post Operative Note Operative Note Pre-op Diagnosis: Cholecystitis & Cholelithiasis Procedure: Laparoscopic Cholecystectomy Post-op Diagnosis: same as pre-op Findings: consistent w/pre-op dx studies Surgeon: MD Kyle Dispatcher Motor Vehicle: none Anesthesiologist: Dr. Lee Anesthesia: general Specimen: yes Complications: none Condition: stable Fluids: per anesthesialogist Estimated Blood Loss: minimal Drains: none Implant(s) used?: No ELVIRA BURRIS Aug 24, 2017 18:40
[2017-08-24] MEDS ORDERED: HYDROmorphone 1mg/ml Carpuject IVP PRN (18:45)
[2017-08-24] MEDS ORDERED: Metoclopramide 10mg/2ml Inj IVP PRN (18:45)
[2017-08-24] MEDS ORDERED: Hydromorphone 0.5mg/0.5ml inj IVP PRN ×2 (18:45→19:15)
[2017-08-24] MEDS ORDERED: Acetaminophen 650 MG SUPP RECTAL PRN (18:45)
--- NOTE | 2017-08-24 18:59 | Immediate Post-Op Evaluation ---
Immediate Post-Op Evalulation Immediate Post-Op Evalulation Procedure: Laparoscopic cholecystectomy Date of Evaluation: Aug 24, 2017 Time of Evaluation: 18:58 IV Fluids: 600 Blood Products: none Estimated Blood Loss: 50 Urinary Output: 200 Blood Pressure Systolic: 125 Blood Pressure Diastolic: 63 Pulse Rate: 72 Respiratory Rate: 20 O2 Sat by Pulse Oximetry: 98 Temperature (Fahrenheit): 98.6 Pain Score (1-10): 2 Nausea: No Vomiting: No Complications none Patient Status: reacts, patent, extubated, none Hydration Status: adequate GRACE CASANOVA M.D. Aug 24, 2017 18:59
[2017-08-24] MEDS ORDERED: LR 1000ml 1,000 ML IVLG SCH (19:15)
[2017-08-24] MEDS ORDERED: Midazolam 2mg/2ml Inj IVP ONE (19:20)
[2017-08-24] MEDS ORDERED: NS Irrig 1000ml IRRIG ONE (19:28)
--- NOTE | 2017-08-24 19:30 | Procedure Note ---
SURGEON: Marvin Rm M.D. PROCEDURE: Endoscopic retrograde cholangiopancreatography with sphincterotomy and stone removal. ANESTHESIA: Per PIPE ASSEMBLY WORKER, Jaona Tarrillion INSTRUMENT: Olympus ECRP scope. INDICATION: Choledocholithiasis and cholangitis. REASON FOR PROCEDURE: The procedure, risks, benefits, and possible consequences, including hemorrhage, aspiration, perforation and infection, and alternative treatments, were explained to the patient/legal guardian by Dr. Marvin Rm and the patient/legal guardian understood and accepted these risks. DESCRIPTION OF PROCEDURE: After informed consent was obtained and the patient was adequately sedated, ERCP scope was advanced from mouth into the second portion of the duodenum. Using a sphincterotome, common bile duct was selectively cannulated. Initial cholangiogram showed evidence of dilated common bile duct to about 11 mm in size with multiple filling defect in the distal common bile duct most probably stone. Then, over a guidewire using a sphincterotome, 95% sphincterotomy was performed. A 11.5 mm balloon was used to sweep the duct multiple times to remove at least 3 or 4 small stones. Most of the stones were brown in color. The cystic duct was not filled. Gallbladder was not filled with the contrast. Post stone removal, balloon occlusion cholangiogram showed no further filling defect in the common bile duct. The flow of contrast from common bile duct due to intestine was good so we know no stent was placed at this time. The patient tolerated the procedure very well without complications. SUMMARY FINDINGS: Status post endoscopic retrograde cholangiopancreatography with sphincterotomy and stone removal and balloon occlusion cholangiogram. RECOMMENDATIONS: 1. Follow laboratories. 2. Follow with the surgery for possible cholecystectomy. I want to thank Dr. Clayton for this kind referral. Marvin Rm M.D. DR: JOSE JOB#: [id number] CC: Nahid Clayton M.D.
[2017-08-24] MEDS: Tamsulosin 0.4mg cap ORAL SCH (21:59)
[2017-08-24] MEDS ORDERED: Zosyn 3.375gm/50ml Premix 50 ML IVPB SCH (22:00)
--- NOTE | 2017-08-24 23:15 | Operative Note - Dictated ---
DATE OF OPERATION: 08/24/2017 PREOPERATIVE DIAGNOSES: Cholecystitis and cholelithiasis. POSTOPERATIVE DIAGNOSES: Cholecystitis and cholelithiasis. OPERATION: Laparoscopic cholecystectomy. COMPLICATION: None. SURGEON: Luis New M.D. MEDICAL IMAGING TECHNICIAN: None. ANESTHESIA: General with endotracheal tube. ANESTHESIOLOGIST: Jose Luis Lee M.D. INDICATION: This is a 72-year-old male, who presented with 1-day history of abdominal pain. The pain apparently was located at right upper quadrant and epigastrium. Physical examination on admission showed tenderness at the epigastrium. The laboratory tests showed bilirubin of 2.4 with direct bilirubin of 1.8. Ultrasound and CAT scan showed cholelithiasis. The next day, which was yesterday, the bilirubin raised to 5.4 with a direct bilirubin of 4.7. So, this morning, he underwent ERCP, during which 4 to 5 stones have been removed from the common bile duct. At this time, he has been scheduled for laparoscopic cholecystectomy. DESCRIPTION OF PROCEDURE: The patient was placed supine on the operating table and after general anesthesia with endotracheal tube, the abdomen was properly prepped and draped. Initially, a small incision was given below the umbilicus through which a Veress needle was introduced into the intraperitoneal cavity. This cavity was insufflated up to 15 mmHg and then Veress needle was removed and a 5 mm trocar was placed in the intraperitoneal cavity through the incision below the umbilicus. Laparoscopic camera was introduced into the intraperitoneal cavity through the trocar below the umbilicus. Under direct vision, a working trocar was placed at the epigastrium and 5 mm trocars were placed at right upper quadrant and right flank. Initially, rapid exploration was performed, which showed the diaphragms to be normal. The part of the stomach, which could be seen was normal. The liver was normal. Gallbladder was distended and had edema. The bowels were covered with omentum. Initially, the gallbladder which was very distended was aspirated with endoscopic needle and then the fundus of the gallbladder was grasped with a grasper from the trocar site at the right flank. The fundus was retracted cephalad and lateral. The neck of the gallbladder was grasped with another grasper and Calot triangle was exposed. Blunt dissection over this triangle was performed and finally the cystic duct was identified and isolated. The cystic duct was doubly ligated with a hemoclip and was transected. Further exploration was performed and the cystic artery was identified, doubly ligated, and transected. After this, the gallbladder was gradually released from the gallbladder bed from the neck towards the fundus. The gallbladder was completely removed from the gallbladder bed and was removed from the intraperitoneal cavity through the incision at epigastrium. to accumodate the size of the gallbladder, we had to extend the incision at the epigastrium. After the gallbladder was removed, the gallbladder bed was completely cauterized with the help of the Bovie and then the right upper quadrant cavity was thoroughly irrigated with antibiotic solution. Another exploration was performed, which failed to show any complication or bleeding. So, the trocars were removed under direct vision and the incisions were infiltrated with total of 30 mL of Marcaine 0.25%. The incision on the fascia at the epigastrium was approximated with a running suture of #0 Vicryl. The subcutaneous tissue was approximated with 4-0 chromic and the skin incisions were approximated with running subcuticular suture of 4-0 chromic. The patient tolerated the procedure very well and was transferred to recovery room in stable condition and extubated. The sponge and needle count was correct. Estimated blood loss was 5 mL. Condition of the patient at the end of procedure is stable. Luis New M.D. DR: Flower JOB#: [id number] CC: EMMA
[2017-08-25] VITALS: BP 134/77
[2017-08-25 04:00] VITALS: BP 130/79
[2017-08-25] MEDS: Piperacillin/Tazobactam 3.375 GM in D5W 55 ML IVPB SCH ×3 (05:46→21:40)
--- NOTE | 2017-08-25 05:46 | Progress Note ---
DATE: 08/24/2017 CARDIOLOGY PROGRESS NOTE SUBJECTIVE: The patient is status post ERCP with stone extraction. He is also status post laparoscopic cholecystectomy with no perioperative complications. The patient is sleepy. Pain is currently controlled. OBJECTIVE: VITAL SIGNS: Blood pressure 134/77, pulse 53, respirations 17, and afebrile. LUNGS: Clear. CARDIAC: Regular. ABDOMEN: Distended with tenderness in the upper quadrant right predominantly. EXTREMITIES: With no edema. LABORATORY DATA: Today, potassium is 3, BUN 16, and creatinine 1.3. Magnesium yesterday 1.4. Albumin 2.4. IMPRESSION: 1. Choledocholithiasis. 2. Acute cholecystitis. 3. Biliary pancreatitis. 4. Hypertensive heart disease with labile blood pressure. 5. Chronic diastolic congestive heart failure. 6. Urinary tract infection. PLAN: 1. Hydration. 2. Antimicrobials. 3. NPO for now. 4. DVT and stress ulcer prophylaxis. 5. Monitor liver function and renal parameters. 6. Replace electrolytes as needed. Nahid Clayton M.D. DR: TIEN JOB#: [id number] CC:
[2017-08-25 07:11] LABS: BASOPHILS % (AUTO) 1.2 % (0.0-2.0); EOSINOPHILS % (AUTO) 0.9 % (0.0-3.0); LYMPHOCYTES % (AUTO) 15.2 % (20.0-45.0); MEAN CORPUSCULAR HEMOGLOBIN 32.9 PG (27.0-31.0); MEAN CORPUSCULAR HGB CONC 34.1 G/DL (32.0-36.0); MEAN CORPUSCULAR VOLUME 96 FL (80-99); MEAN PLATELET VOLUME 9.1 FL (6.5-10.1); MONOCYTES % (AUTO) 8.4 % (1.0-10.0); NEUTROPHILS % (AUTO) 74.3 % (45.0-75.0); PLATELET COUNT 197 K/UL (150-450); RED BLOOD COUNT 4.65 M/UL (4.70-6.10); RED CELL DISTRIBUTION WIDTH 10.8 % (11.6-14.8); WHITE BLOOD COUNT 5.8 K/UL (4.8-10.8)
[2017-08-25 07:23] LABS: ALANINE AMINOTRANSFERASE 155 U/L (12-78); ALBUMIN/GLOBULIN RATIO 0.7 (1.0-2.7); ANION GAP 5 mmol/L (5-15); ASPARTATE AMINO TRANSFERASE 73 U/L (15-37); CALCIUM 8.4 MG/DL (8.5-10.1); CARBON DIOXIDE 30 MMOL/L (21-32); CHLORIDE 104 MMOL/L (98-107); CREATININE 1.2 MG/DL (0.55-1.30); POTASSIUM 3.5 MMOL/L (3.5-5.1); SODIUM 139 MMOL/L (136-145); TOTAL PROTEIN 7.1 G/DL (6.4-8.2)
[2017-08-25 07:24] LABS: BILIRUBIN,DIRECT 1.3 MG/DL (0.0-0.3)
[2017-08-25] MEDS: D5 1/2NS w/KCl 20mEq 1,000 ML IV SCH ×2 (07:46→17:21)
[2017-08-25 08:00] VITALS: BP 133/74
--- NOTE | 2017-08-25 08:12 | General Progress Note ---
Assessment/Plan Problem List: (1) Renal insufficiency ICD Codes: N28.9 - Disorder of kidney and ureter, unspecified SNOMED: 716555735, 596422986 (2) Elevated LFTs ICD Codes: R79.89 - Other specified abnormal findings of blood chemistry SNOMED: 132901539, 609877250 (3) Pancreatitis ICD Codes: K85.90 - Acute pancreatitis without necrosis or infection, unspecified SNOMED: 01334049 Qualifiers: Qualified Codes: K85.10 - Biliary acute pancreatitis without necrosis or infection (4) Transaminitis ICD Codes: R74.0 - Nonspecific elevation of levels of transaminase and lactic acid dehydrogenase [LDH] SNOMED: 907645113 (5) Gallstone pancreatitis ICD Codes: K85.10 - Biliary acute pancreatitis without necrosis or infection SNOMED: 53794958 (6) Dilated cbd, acquired ICD Codes: K83.8 - Other specified diseases of biliary tract SNOMED: 803724136 Status: stable Assessment/Plan ivf pain rx as needed antiemetics abx called for suprapubic catheter change. Subjective ROS Limited/Unobtainable: No Constitutional: Reports: malaise, weakness HEENT: Reports: no symptoms Cardiovascular: Reports: no symptoms Respiratory: Reports: no symptoms Gastrointestinal/Abdominal: Reports: no symptoms Genitourinary: Reports: other - suprapubic cath Neurologic/Psychiatric: Reports: pre-existing deficit Endocrine: Reports: no symptoms Hematologic/Lymphatic: Reports: no symptoms Allergies: Coded Allergies: SULFA (SULFONAMIDE ANTIBIOTICS) (Verified Allergy, Unknown, 08/22/17) Subjective s/po ercp. tolerated well. no chest pain no sob. no fever or chills. family states pt due foe suprapubic catheter change Objective Last 24 Hour Vital Signs Date Time Temp Pulse Resp B/P (MAP) Pulse Ox O2 Delivery O2 Flow Rate FiO2 08/25/17 08:00 97.7 50 19 133/74 98 Nasal Cannula 2.0 08/25/17 04:00 97.2 56 17 130/79 96 Nasal Cannula 2.0 08/25/17 00:00 97.2 53 17 134/77 93 Nasal Cannula 2.0 08/24/17 20:00 97.2 53 17 134/77 93 Nasal Cannula 2.0 08/24/17 19:30 98.0 56 15 140/76 96 Nasal Cannula 3.0 08/24/17 19:20 49 20 135/65 96 Nasal Cannula 3.0 08/24/17 19:10 51 19 133/63 96 Nasal Cannula 3.0 08/24/17 19:00 50 17 136/54 99 Nasal Cannula 3.0 08/24/17 18:59 72 20 98 08/24/17 18:50 49 16 129/69 99 Simple Mask 6.0 08/24/17 18:46 98.4 50 18 119/67 97 Simple Mask 6.0 08/24/17 16:22 97.7 53 20 150/81 96 Room Air 08/24/17 11:27 97.8 58 20 138/81 92 Room Air 08/24/17 09:18 70 14 97 08/24/17 09:10 60 16 147/86 96 Room Air 08/24/17 09:00 61 16 142/86 92 Room Air 08/24/17 08:57 60 14 97 08/24/17 08:50 58 16 140/81 95 Nasal Cannula 2.0 08/24/17 08:45 59 16 131/83 95 Nasal Cannula 2.0 08/24/17 08:40 60 16 135/83 96 Nasal Cannula 3.0 08/24/17 08:32 98.5 60 16 133/83 96 Nasal Cannula 3.0 Intake and Output 08/25/17 08/26/17 19:00 07:00 Intake Total 360 ml Balance 360 ml Intake Oral 360 ml Laboratory Tests 08/25/17 04:40: White Blood Count 5.8, Red Blood Count 4.65L, Hemoglobin 15.3, Hematocrit 44.8, Mean Corpuscular Volume 96, Mean Corpuscular Hemoglobin 32.9H, Mean Corpuscular Hemoglobin Concent 34.1, Red Cell Distribution Width 10.8L, Platelet Count 197, Mean Platelet Volume 9.1, Neutrophils (%) (Auto) 74.3, Lymphocytes (%) (Auto) 15.2L, Monocytes (%) (Auto) 8.4, Eosinophils (%) (Auto) 0.9, Basophils (%) (Auto ) 1.2, Sodium Level 139, Potassium Level 3.5, Chloride Level 104, Carbon Dioxide Level 30, Anion Gap 5, Blood Urea Nitrogen 10, Creatinine 1.2, Estimat Glomerular Filtration Rate , Glucose Level 159H, Calcium Level 8.4L, Total Bilirubin 2.3H, Direct Bilirubin 1.3H, Aspartate Amino Transf (AST/SGOT) 73H, Alanine Aminotransferase (ALT/SGPT) 155H, Alkaline Phosphatase 122H, Total Protein 7.1, Albumin 2.8L, Globulin 4.3, Albumin/Globulin Ratio 0.7L Height (Feet): 6 Height (Inches): 6.00 Weight (Pounds): 230 General Appearance: WD/WN, alert Neck: supple Cardiovascular: normal peripheral pulses, normal rate, regular rhythm Respiratory/Chest: chest wall non-tender, lungs clear, normal breath sounds, no respiratory distress Abdomen: normal bowel sounds, non tender, soft, no organomegaly Pelvis: normal external exam Genitourinary/Rectal: normal genital exam Edema: no edema noted Arm (L), no edema noted Arm (R), no edema noted Leg (L), no edema noted Leg (R), no edema noted Pedal (L), no edema noted Pedal (R), no edema noted Generalized Neurologic: software engineer II-XII grossly normal, alert, oriented x 3, responsive Skin: normal pigmentation ROSALIE MORATAYA Aug 25, 2017 08:12
[2017-08-25] MEDS: Pantoprazole Inj IVP SCH (08:31)
--- NOTE | 2017-08-25 11:01 | 48 Hour Post Anesthesia Eval ---
Post Anesthesia Evaluation Procedure: Laparoscopic cholecystectomy Date of Evaluation: Aug 25, 2017 Time of Evaluation: 10:45 Blood Pressure Systolic: 133 0: 74 Pulse Rate: 50 Respiratory Rate: 19 Temperature (Fahrenheit): 97.7 O2 Sat by Pulse Oximetry: 98 Airway: patent Nausea: No Vomiting: No Pain Intensity: 1 Hydration Status: adequate Cardiopulmonary Status: at baseline Mental Status/LOC: patient returned to baseline Post-Anesthesia Complications: 0 Follow-up care needed: N/A - further care as per primary team THOMAS AMIN M.D. Aug 25, 2017 11:01
[2017-08-25 12:00] VITALS: BP 135/71
[2017-08-25 16:00] VITALS: BP 146/79
--- NOTE | 2017-08-25 19:57 | General Surgery Progress Note ---
General Surgery-Progress Note Subjective Procedure Performed Laparoscopic Cholecystectomy Symptoms: improved Objective Last 24 Hour Vital Signs Date Time Temp Pulse Resp B/P (MAP) Pulse Ox O2 Delivery O2 Flow Rate FiO2 08/25/17 16:00 97.6 54 18 146/79 96 Room Air 08/25/17 12:00 98.3 51 18 135/71 96 Nasal Cannula 2.0 08/25/17 11:01 50 19 98 08/25/17 08:00 97.7 50 19 133/74 98 Nasal Cannula 2.0 08/25/17 04:00 97.2 56 17 130/79 96 Nasal Cannula 2.0 08/25/17 00:00 97.2 53 17 134/77 93 Nasal Cannula 2.0 08/24/17 20:00 97.2 53 17 134/77 93 Nasal Cannula 2.0 I&O Intake and Output 08/25/17 08/26/17 19:00 07:00 Intake Total 1660 ml Output Total 1600 ml Balance 60 ml Intake Oral 960 ml IV Total 700 ml Output Urine Total 1600 ml # Voids 3 Dressing: dry Drains: none Respiratory: clear Abdomen: soft, flat, non-tender, present bowel sounds Extremities: no tenderness Laboratory Tests Test 08/25/17 04:40 White Blood Count 5.8 K/UL (4.8-10.8) Red Blood Count 4.65 M/UL (4.70-6.10) L Hemoglobin 15.3 G/DL (14.2-18.0) Hematocrit 44.8 % (42.0-52.0) Mean Corpuscular Volume 96 FL (80-99) Mean Corpuscular Hemoglobin 32.9 PG (27.0-31.0) H Mean Corpuscular Hemoglobin Concent 34.1 G/DL (32.0-36.0) Red Cell Distribution Width 10.8 % (11.6-14.8) L Platelet Count 197 K/UL (150-450) Mean Platelet Volume 9.1 FL (6.5-10.1) Neutrophils (%) (Auto) 74.3 % (45.0-75.0) Lymphocytes (%) (Auto) 15.2 % (20.0-45.0) L Monocytes (%) (Auto) 8.4 % (1.0-10.0) Eosinophils (%) (Auto) 0.9 % (0.0-3.0) Basophils (%) (Auto) 1.2 % (0.0-2.0) Sodium Level 139 MMOL/L (136-145) Potassium Level 3.5 MMOL/L (3.5-5.1) Chloride Level 104 MMOL/L (98-107) Carbon Dioxide Level 30 MMOL/L (21-32) Anion Gap 5 mmol/L (5-15) Blood Urea Nitrogen 10 mg/dL (7-18) Creatinine 1.2 MG/DL (0.55-1.30) Estimat Glomerular Filtration Rate mL/min (>60) Glucose Level 159 MG/DL (74-106) H Calcium Level 8.4 MG/DL (8.5-10.1) L Total Bilirubin 2.3 MG/DL (0.2-1.0) H Direct Bilirubin 1.3 MG/DL (0.0-0.3) H Aspartate Amino Transf (AST/SGOT) 73 U/L (15-37) H Alanine Aminotransferase (ALT/SGPT) 155 U/L (12-78) H Alkaline Phosphatase 122 U/L (46-116) H Total Protein 7.1 G/DL (6.4-8.2) Albumin 2.8 G/DL (3.4-5.0) L Globulin 4.3 g/dL Albumin/Globulin Ratio 0.7 (1.0-2.7) L Assessment Additional Comments S/P Lap Autumn Plan Additional Comments can be discharged tomorrow ELVIRA BURRIS Aug 25, 2017 19:57
[2017-08-25] MEDS ORDERED: Pericolace tab ORAL PRN (20:00)
--- NOTE | 2017-08-25 20:44 | General Progress Note ---
Assessment/Plan Assessment/Plan Assessment - Gallstone pancreatitis - Biliary ductal dilation - OBS - s/p lap frantz Recommendations - post op care - re check LFT in am - diet per surgery Subjective Allergies: Coded Allergies: SULFA (SULFONAMIDE ANTIBIOTICS) (Verified Allergy, Unknown, 08/22/17) Subjective Confused but comfortable denies abd pain s/p ERCP and lap frantz Objective Last 24 Hour Vital Signs Date Time Temp Pulse Resp B/P (MAP) Pulse Ox O2 Delivery O2 Flow Rate FiO2 08/25/17 16:00 97.6 54 18 146/79 96 Room Air 08/25/17 12:00 98.3 51 18 135/71 96 Nasal Cannula 2.0 08/25/17 11:01 50 19 98 08/25/17 08:00 97.7 50 19 133/74 98 Nasal Cannula 2.0 08/25/17 04:00 97.2 56 17 130/79 96 Nasal Cannula 2.0 08/25/17 00:00 97.2 53 17 134/77 93 Nasal Cannula 2.0 Intake and Output 08/25/17 08/26/17 19:00 07:00 Intake Total 1660 ml Output Total 1600 ml Balance 60 ml Intake Oral 960 ml IV Total 700 ml Output Urine Total 1600 ml # Voids 3 Laboratory Tests 08/25/17 04:40: White Blood Count 5.8, Red Blood Count 4.65L, Hemoglobin 15.3, Hematocrit 44.8, Mean Corpuscular Volume 96, Mean Corpuscular Hemoglobin 32.9H, Mean Corpuscular Hemoglobin Concent 34.1, Red Cell Distribution Width 10.8L, Platelet Count 197, Mean Platelet Volume 9.1, Neutrophils (%) (Auto) 74.3, Lymphocytes (%) (Auto) 15.2L, Monocytes (%) (Auto) 8.4, Eosinophils (%) (Auto) 0.9, Basophils (%) (Auto ) 1.2, Sodium Level 139, Potassium Level 3.5, Chloride Level 104, Carbon Dioxide Level 30, Anion Gap 5, Blood Urea Nitrogen 10, Creatinine 1.2, Estimat Glomerular Filtration Rate , Glucose Level 159H, Calcium Level 8.4L, Total Bilirubin 2.3H, Direct Bilirubin 1.3H, Aspartate Amino Transf (AST/SGOT) 73H, Alanine Aminotransferase (ALT/SGPT) 155H, Alkaline Phosphatase 122H, Total Protein 7.1, Albumin 2.8L, Globulin 4.3, Albumin/Globulin Ratio 0.7L Height (Feet): 6 Height (Inches): 6.00 Weight (Pounds): 230 Objective WDWN NCAT supple CTA RRR Abd soft ND NT no edema OBS MAKSIM ZIMMERMAN Aug 25, 2017 20:44
[2017-08-25 20:45] VITALS: BP 139/82
[2017-08-25] MEDS: Tamsulosin 0.4mg cap ORAL SCH (21:40)
--- NOTE | 2017-08-26 00:30 | Consultation ---
DATE OF CONSULTATION: 08/25/2017 CONSULTING PHYSICIAN: Mark Fishman M.D. REFERRING PHYSICIAN: Tin Tafoya M.D. REASON FOR CONSULTATION: Evaluation of suprapubic catheter. HISTORY OF PRESENT ILLNESS: This is a 72-year-old male. He was admitted because of pancreatitis. The patient is status post laparoscopic cholecystectomy. The patient has a history of BPH, neurogenic bladder, chronic suprapubic tube. Family stated that he was due for a change and Urology evaluation was requested. Most of the history was obtained from the chart. PAST MEDICAL HISTORY: Significant for above. Also history of hypertension. He has blindness. PAST SURGICAL HISTORY: As above. CURRENT MEDICATIONS: List was reviewed. He is currently on Protonix, Zosyn, Dulcolax, Dilaudid, Zofran, Flomax, and Zantac. ALLERGIES: Sulfa. SOCIAL HISTORY: Smoking history is unknown. FAMILY HISTORY: Unable to obtain. REVIEW OF SYSTEMS: Unable to obtain. PHYSICAL EXAMINATION: GENERAL: This is an elderly male, in no acute distress. VITAL SIGNS: Temperature is 97.6, blood pressure 146/79, pulse 54, and respirations 18. HEENT: Neck is supple. ABDOMEN: Soft. BACK: No CVA tenderness. GENITOURINARY: Suprapubic tube in place, 16-Andorran. Urine is xander. EXTREMITIES: No clubbing or cyanosis. LABORATORY DATA: White count is 5.8, hemoglobin 15.3, and platelets are 197. BUN 10 and creatinine 1.2. UA shows 5 to 10 WBCs, many bacteria. Urine culture showed greater than 100,000 E. coli with 50,000 Klebsiella. DIAGNOSTIC IMAGING STUDIES: The patient had a CT scan of the abdomen and pelvis. There was mention of bladder distention even though there is a suprapubic tube. There was mention of mild bilateral hydronephrosis and also renal cyst. IMPRESSION: 1. History of urinary retention with chronic suprapubic tube. 2. Benign prostatic hypertrophy history. 3. Probable neurogenic bladder. 4. Urinary tract infection and colonized. 5. Renal cyst. 6. Hydronephrosis, which may be chronic. PLAN/DISCUSSION: I personally removed old suprapubic catheter and placed a new 16-Andorran suprapubic catheter. The catheter appeared to be in good position and irrigated well. This was secured to the patient's leg. The patient's renal function is stable. His hydronephrosis may be chronic in nature. He is to continue with antibiotics as ordered. He is currently on Flomax, which he may not need because he has a chronic Ledezma and we could consider discontinuing Flomax. At some point, he will need to have cystoscopy for further evaluation. Thank you, Dr. Tafoya, for asking me to participate in this consultation. Mark Fishman M.D. DR: Catalino JOB#: [id number] CC:
[2017-08-26 00:59] VITALS: BP 143/75
[2017-08-26] MEDS: D5 1/2NS w/KCl 20mEq 1,000 ML IV SCH ×2 (01:19→13:30)
--- NOTE | 2017-08-26 03:15 | Progress Note ---
DATE: 08/25/2017 CARDIOLOGY PROGRESS NOTE SUBJECTIVE: The patient is status post laparoscopic cholecystectomy and endoscopic retrograde cholangiopancreatography for stone extraction. He is on a clear liquid diet. He has minimal pain. No nausea or vomiting. OBJECTIVE: VITAL SIGNS: Blood pressure 139/82, pulse 52, respiratory rate 19, and temperature 99.2. NECK: Supple. LUNGS: Clear. CARDIAC: Regular. Normal S1 and S2. ABDOMEN: Slightly tender, but soft. EXTREMITIES: No edema. LABORATORY AND DIAGNOSTIC DATA: Urine culture is positive for E. coli and Klebsiella pneumonia. Notable for potassium 3.5. Albumin 2.8. Elevated liver function studies persisting. IMPRESSION: 1. Gallstone pancreatitis. 2. Biliary duct dilatation, status post stone extraction. 3. Status post laparoscopic cholecystectomy. 4. Toxic and metabolic encephalopathies functional decline. 5. Hypomagnesemia. 6. Polymicrobial urinary tract infection. 7. Moderate protein-calorie malnutrition. PLAN: 1. Advance diet per surgeon. 2. Antimicrobial spectrum has been narrowed. 3. Taper IV fluids off as oral intake improves. 4. Mobilize with physical and occupational therapy assessments. 5. Discharge planning to follow. 6. Continue DVT prophylaxis. Nahid Clayton M.D. DR: TIEN JOB#: [id number] CC:
[2017-08-26 04:00] VITALS: BP 148/76
[2017-08-26] MEDS: ceFAZolin sod 1 GM in D5W 55 ML IVPB SCH ×3 (06:14→22:15)
[2017-08-26 07:12] LABS: BASOPHILS % (AUTO) 1.7 % (0.0-2.0); EOSINOPHILS % (AUTO) 4.5 % (0.0-3.0); LYMPHOCYTES % (AUTO) 22.2 % (20.0-45.0); MEAN CORPUSCULAR HEMOGLOBIN 32.9 PG (27.0-31.0); MEAN CORPUSCULAR HGB CONC 35.2 G/DL (32.0-36.0); MEAN CORPUSCULAR VOLUME 94 FL (80-99); MEAN PLATELET VOLUME 8.7 FL (6.5-10.1); NEUTROPHILS % (AUTO) 62.6 % (45.0-75.0); PLATELET COUNT 204 K/UL (150-450); RED BLOOD COUNT 4.61 M/UL (4.70-6.10); RED CELL DISTRIBUTION WIDTH 10.7 % (11.6-14.8); WHITE BLOOD COUNT 5.7 K/UL (4.8-10.8)
[2017-08-26 07:17] LABS: ALANINE AMINOTRANSFERASE 161 U/L (12-78); ALBUMIN/GLOBULIN RATIO 0.6 (1.0-2.7); ANION GAP 8 mmol/L (5-15); ASPARTATE AMINO TRANSFERASE 82 U/L (15-37); CALCIUM 8.2 MG/DL (8.5-10.1); CARBON DIOXIDE 24 MMOL/L (21-32); CHLORIDE 105 MMOL/L (98-107); CREATININE 1.1 MG/DL (0.55-1.30); POTASSIUM 3.1 MMOL/L (3.5-5.1); SODIUM 137 MMOL/L (136-145); TOTAL PROTEIN 6.6 G/DL (6.4-8.2)
[2017-08-26 07:18] LABS: BILIRUBIN,DIRECT 1.1 MG/DL (0.0-0.3)
[2017-08-26 08:00] VITALS: BP 139/81
[2017-08-26] MEDS: Pantoprazole Inj IVP SCH (08:50)
--- NOTE | 2017-08-26 10:13 | Urology Progress Note ---
Assessment/Plan Assessment/Plan 1. History of urinary retention with chronic suprapubic tube. 2. Benign prostatic hypertrophy history. 3. Probable neurogenic bladder. 4. Urinary tract infection and colonized. 5. Renal cyst. 6. Hydronephrosis, which may be chronic. keep sp tube, last changed 08/25 hand irrigate PRN abx as ordered ok to dc flomax Subjective Allergies: Coded Allergies: SULFA (SULFONAMIDE ANTIBIOTICS) (Verified Allergy, Unknown, 08/22/17) Subjective all noted, new sp tube draining well Objective Last 24 Hour Vital Signs Date Time Temp Pulse Resp B/P (MAP) Pulse Ox O2 Delivery O2 Flow Rate FiO2 08/26/17 08:00 98.2 61 18 139/81 97 Room Air 08/26/17 04:00 98.0 54 18 148/76 94 Room Air 08/26/17 00:59 99.0 50 17 143/75 92 Room Air 2.0 08/25/17 20:45 99.2 52 19 139/82 93 Room Air 08/25/17 16:00 97.6 54 18 146/79 96 Room Air 08/25/17 12:00 98.3 51 18 135/71 96 Nasal Cannula 2.0 08/25/17 11:01 50 19 98 Microbiology Date/Time Source Procedure Growth Status 08/22/17 02:55 Urine,Clean Catch Urine Culture - Final Escherichia Coli Klebsiella Pneumoniae Complete Current Medications Medications (Trade) Dose Ordered Sig/Efren Route PRN Reason Start Time Stop Time Status Last Admin Dose Admin Acetaminophen (Tylenol) 650 mg Q4H PRN RECTAL FEVER 08/24/17 18:45 09/23/17 18:44 Bisacodyl (Dulcolax) 10 mg DAILYPRN PRN RECTAL CONSTIPATION 08/25/17 09:00 09/24/17 08:59 Cefazolin Sodium 1 gm/Dextrose 55 ml @ 110 mls/hr Q8HR IVPB 08/26/17 06:00 09/02/17 05:59 08/26/17 06:14 Dextrose/ Electrolytes 1,000 ml @ 80 mls/hr [id number] IV 08/26/17 00:00 09/25/17 00:00 08/26/17 01:19 Hydromorphone HCl (Dilaudid) 0.5 mg Q3H PRN IVP Pain Score 1-3 08/24/17 18:45 08/31/17 18:44 Hydromorphone HCl (Dilaudid) 1 mg Q3H PRN IVP pain score 4-6 08/24/17 18:45 08/31/17 18:44 Metoclopramide HCl (Reglan) 10 mg Q6H PRN IVP Nausea & Vomiting 08/24/17 18:45 09/23/17 18:44 Ondansetron HCl (Zofran) 4 mg Q6H PRN IVP Nausea & Vomiting 08/24/17 18:45 09/23/17 18:44 Pantoprazole (Protonix) 40 mg DAILY IVP 08/25/17 09:00 09/24/17 08:59 08/26/17 08:50 Ranitidine HCl (Zantac) 150 mg BEDTIME ORAL 08/22/17 21:00 09/21/17 20:59 08/25/17 21:40 Senna/Docusate Sodium (Cha-Colace) 1 ea BIDPRN PRN ORAL Unrelieved Constipation 08/25/17 20:00 09/24/17 19:59 Tamsulosin HCl (Flomax) 0.4 mg BEDTIME ORAL 08/22/17 21:00 09/21/17 20:59 08/25/17 21:40 Laboratory Tests 08/26/17 04:30: White Blood Count 5.7, Red Blood Count 4.61L, Hemoglobin 15.2, Hematocrit 43.1, Mean Corpuscular Volume 94, Mean Corpuscular Hemoglobin 32.9H, Mean Corpuscular Hemoglobin Concent 35.2, Red Cell Distribution Width 10.7L, Platelet Count 204, Mean Platelet Volume 8.7, Neutrophils (%) (Auto) 62.6, Lymphocytes (%) (Auto) 22.2, Monocytes (%) (Auto) 9.0, Eosinophils (%) (Auto) 4.5H, Basophils (%) (Auto ) 1.7, Sodium Level 137, Potassium Level 3.1L, Chloride Level 105, Carbon Dioxide Level 24, Anion Gap 8, Blood Urea Nitrogen 8, Creatinine 1.1, Estimat Glomerular Filtration Rate , Glucose Level 146H, Calcium Level 8.2L, Magnesium Level 1.5L, Total Bilirubin 2.0H, Direct Bilirubin 1.1H, Aspartate Amino Transf (AST/SGOT) 82H, Alanine Aminotransferase (ALT/SGPT) 161H, Alkaline Phosphatase 126H, Total Protein 6.6, Albumin 2.5L, Globulin 4.1, Albumin/Globulin Ratio 0.6L Height (Feet): 6 Height (Inches): 6.00 Weight (Pounds): 230 Objective exam stable, urine yellow/xander MEMO CARNEY Aug 26, 2017 10:13
--- NOTE | 2017-08-26 10:44 | General Progress Note ---
Assessment/Plan Assessment/Plan Assessment - Gallstone pancreatitis - Biliary ductal dilation - OBS - s/p lap frantz Recommendations - post op care - re check LFT in am - diet per surgery - d/c planning Subjective Allergies: Coded Allergies: SULFA (SULFONAMIDE ANTIBIOTICS) (Verified Allergy, Unknown, 08/22/17) Subjective sitting in chair comfortable denies abd pain s/p ERCP and lap frantz Objective Last 24 Hour Vital Signs Date Time Temp Pulse Resp B/P (MAP) Pulse Ox O2 Delivery O2 Flow Rate FiO2 08/26/17 08:00 98.2 61 18 139/81 97 Room Air 08/26/17 04:00 98.0 54 18 148/76 94 Room Air 08/26/17 00:59 99.0 50 17 143/75 92 Room Air 2.0 08/25/17 20:45 99.2 52 19 139/82 93 Room Air 08/25/17 16:00 97.6 54 18 146/79 96 Room Air 08/25/17 12:00 98.3 51 18 135/71 96 Nasal Cannula 2.0 08/25/17 11:01 50 19 98 Laboratory Tests 08/26/17 04:30: White Blood Count 5.7, Red Blood Count 4.61L, Hemoglobin 15.2, Hematocrit 43.1, Mean Corpuscular Volume 94, Mean Corpuscular Hemoglobin 32.9H, Mean Corpuscular Hemoglobin Concent 35.2, Red Cell Distribution Width 10.7L, Platelet Count 204, Mean Platelet Volume 8.7, Neutrophils (%) (Auto) 62.6, Lymphocytes (%) (Auto) 22.2, Monocytes (%) (Auto) 9.0, Eosinophils (%) (Auto) 4.5H, Basophils (%) (Auto ) 1.7, Sodium Level 137, Potassium Level 3.1L, Chloride Level 105, Carbon Dioxide Level 24, Anion Gap 8, Blood Urea Nitrogen 8, Creatinine 1.1, Estimat Glomerular Filtration Rate , Glucose Level 146H, Calcium Level 8.2L, Magnesium Level 1.5L, Total Bilirubin 2.0H, Direct Bilirubin 1.1H, Aspartate Amino Transf (AST/SGOT) 82H, Alanine Aminotransferase (ALT/SGPT) 161H, Alkaline Phosphatase 126H, Total Protein 6.6, Albumin 2.5L, Globulin 4.1, Albumin/Globulin Ratio 0.6L Height (Feet): 6 Height (Inches): 6.00 Weight (Pounds): 230 Objective WDWN NCAT supple CTA RRR Abd soft ND NT no edema OBS MAKSIM ZIMMERMAN Aug 26, 2017 10:44
[2017-08-26 12:00] VITALS: BP 116/71
[2017-08-26 16:00] VITALS: BP 160/85
--- NOTE | 2017-08-26 16:46 | General Surgery Progress Note ---
General Surgery-Progress Note Subjective Procedure Performed Laparoscopic Cholecystectomy Symptoms: tolerating diet Objective Last 24 Hour Vital Signs Date Time Temp Pulse Resp B/P (MAP) Pulse Ox O2 Delivery O2 Flow Rate FiO2 08/26/17 16:00 97.3 53 20 160/85 97 Room Air 08/26/17 12:00 97.9 74 17 116/71 100 Room Air 08/26/17 08:00 98.2 61 18 139/81 97 Room Air 08/26/17 04:00 98.0 54 18 148/76 94 Room Air 08/26/17 00:59 99.0 50 17 143/75 92 Room Air 2.0 08/25/17 20:45 99.2 52 19 139/82 93 Room Air Dressing: dry Drains: none Respiratory: clear Abdomen: soft, flat, non-tender, present bowel sounds Extremities: no tenderness Laboratory Tests Test 08/26/17 04:30 White Blood Count 5.7 K/UL (4.8-10.8) Red Blood Count 4.61 M/UL (4.70-6.10) L Hemoglobin 15.2 G/DL (14.2-18.0) Hematocrit 43.1 % (42.0-52.0) Mean Corpuscular Volume 94 FL (80-99) Mean Corpuscular Hemoglobin 32.9 PG (27.0-31.0) H Mean Corpuscular Hemoglobin Concent 35.2 G/DL (32.0-36.0) Red Cell Distribution Width 10.7 % (11.6-14.8) L Platelet Count 204 K/UL (150-450) Mean Platelet Volume 8.7 FL (6.5-10.1) Neutrophils (%) (Auto) 62.6 % (45.0-75.0) Lymphocytes (%) (Auto) 22.2 % (20.0-45.0) Monocytes (%) (Auto) 9.0 % (1.0-10.0) Eosinophils (%) (Auto) 4.5 % (0.0-3.0) H Basophils (%) (Auto) 1.7 % (0.0-2.0) Sodium Level 137 MMOL/L (136-145) Potassium Level 3.1 MMOL/L (3.5-5.1) L Chloride Level 105 MMOL/L (98-107) Carbon Dioxide Level 24 MMOL/L (21-32) Anion Gap 8 mmol/L (5-15) Blood Urea Nitrogen 8 mg/dL (7-18) Creatinine 1.1 MG/DL (0.55-1.30) Estimat Glomerular Filtration Rate mL/min (>60) Glucose Level 146 MG/DL (74-106) H Calcium Level 8.2 MG/DL (8.5-10.1) L Magnesium Level 1.5 MG/DL (1.8-2.4) L Total Bilirubin 2.0 MG/DL (0.2-1.0) H Direct Bilirubin 1.1 MG/DL (0.0-0.3) H Aspartate Amino Transf (AST/SGOT) 82 U/L (15-37) H Alanine Aminotransferase (ALT/SGPT) 161 U/L (12-78) H Alkaline Phosphatase 126 U/L (46-116) H Total Protein 6.6 G/DL (6.4-8.2) Albumin 2.5 G/DL (3.4-5.0) L Globulin 4.1 g/dL Albumin/Globulin Ratio 0.6 (1.0-2.7) L Assessment Additional Comments S/P Lap Autumn Plan Additional Comments continue current treatment ELVIRA BURRIS Aug 26, 2017 16:46
--- NOTE | 2017-08-26 16:59 | General Progress Note ---
Assessment/Plan Problem List: (1) Renal insufficiency ICD Codes: N28.9 - Disorder of kidney and ureter, unspecified SNOMED: 328689662, 700378201 (2) Elevated LFTs ICD Codes: R79.89 - Other specified abnormal findings of blood chemistry SNOMED: 883539315, 727035278 (3) Pancreatitis ICD Codes: K85.90 - Acute pancreatitis without necrosis or infection, unspecified SNOMED: 15989443 Qualifiers: Qualified Codes: K85.10 - Biliary acute pancreatitis without necrosis or infection (4) Transaminitis ICD Codes: R74.0 - Nonspecific elevation of levels of transaminase and lactic acid dehydrogenase [LDH] SNOMED: 676066898 (5) Gallstone pancreatitis ICD Codes: K85.10 - Biliary acute pancreatitis without necrosis or infection SNOMED: 47427683 (6) Dilated cbd, acquired ICD Codes: K83.8 - Other specified diseases of biliary tract SNOMED: 690656266 Status: stable, progressing Assessment/Plan ivf pain rx as needed antiemetics abx pos per surgery s/p suprabubic catheter change by gu Subjective ROS Limited/Unobtainable: No Constitutional: Reports: malaise, weakness HEENT: Reports: no symptoms Cardiovascular: Reports: no symptoms Respiratory: Reports: no symptoms Gastrointestinal/Abdominal: Reports: no symptoms Genitourinary: Reports: no symptoms Neurologic/Psychiatric: Reports: no symptoms Endocrine: Reports: no symptoms Hematologic/Lymphatic: Reports: no symptoms Allergies: Coded Allergies: SULFA (SULFONAMIDE ANTIBIOTICS) (Verified Allergy, Unknown, 08/22/17) All Systems: reviewed and negative except above Subjective s/p lap frantz. no new complaints. tolerating clears. denies pain. Objective Last 24 Hour Vital Signs Date Time Temp Pulse Resp B/P (MAP) Pulse Ox O2 Delivery O2 Flow Rate FiO2 08/26/17 16:00 97.3 53 20 160/85 97 Room Air 08/26/17 12:00 97.9 74 17 116/71 100 Room Air 08/26/17 08:00 98.2 61 18 139/81 97 Room Air 08/26/17 04:00 98.0 54 18 148/76 94 Room Air 08/26/17 00:59 99.0 50 17 143/75 92 Room Air 2.0 08/25/17 20:45 99.2 52 19 139/82 93 Room Air Laboratory Tests 08/26/17 04:30: White Blood Count 5.7, Red Blood Count 4.61L, Hemoglobin 15.2, Hematocrit 43.1, Mean Corpuscular Volume 94, Mean Corpuscular Hemoglobin 32.9H, Mean Corpuscular Hemoglobin Concent 35.2, Red Cell Distribution Width 10.7L, Platelet Count 204, Mean Platelet Volume 8.7, Neutrophils (%) (Auto) 62.6, Lymphocytes (%) (Auto) 22.2, Monocytes (%) (Auto) 9.0, Eosinophils (%) (Auto) 4.5H, Basophils (%) (Auto ) 1.7, Sodium Level 137, Potassium Level 3.1L, Chloride Level 105, Carbon Dioxide Level 24, Anion Gap 8, Blood Urea Nitrogen 8, Creatinine 1.1, Estimat Glomerular Filtration Rate , Glucose Level 146H, Calcium Level 8.2L, Magnesium Level 1.5L, Total Bilirubin 2.0H, Direct Bilirubin 1.1H, Aspartate Amino Transf (AST/SGOT) 82H, Alanine Aminotransferase (ALT/SGPT) 161H, Alkaline Phosphatase 126H, Total Protein 6.6, Albumin 2.5L, Globulin 4.1, Albumin/Globulin Ratio 0.6L Height (Feet): 6 Height (Inches): 6.00 Weight (Pounds): 230 General Appearance: WD/WN, alert EENT: normal ENT inspection, TMs normal Neck: non-tender, normal alignment, supple Cardiovascular: normal peripheral pulses, normal rate, regular rhythm Respiratory/Chest: chest wall non-tender, lungs clear, normal breath sounds Edema: no edema noted Arm (L), no edema noted Arm (R), no edema noted Leg (L), no edema noted Leg (R), no edema noted Pedal (L), no edema noted Pedal (R), no edema noted Generalized ROSALIE MORATAYA Aug 26, 2017 16:59
[2017-08-26] MEDS: Tamsulosin 0.4mg cap ORAL SCH (20:37)
[2017-08-26 20:42] VITALS: BP 150/74
--- NOTE | 2017-08-26 22:00 | Progress Note ---
DATE: 08/26/2017 CARDIOLOGY PROGRESS NOTE SUBJECTIVE: The patient is tolerating liquid diet. The diet is expected to be advanced by the surgeon. OBJECTIVE: VITAL SIGNS: Afebrile, blood pressure 160/85, pulse 53, and respirations 20. NECK: Supple. LUNGS: Clear. ABDOMEN: Soft. Mildly tender in the right upper quadrant. Surgical site is clean. EXTREMITIES: No edema. LABORATORY DATA: Reviewed. White count 5.7 and hemoglobin 15.2. Sodium 137, potassium 3.1, magnesium 1.5, BUN 8, and creatinine 1.1. Albumin 2.5. Liver function tests remained elevated. IMPRESSION: 1. Gallstone pancreatitis, resolved. 2. Cholecystitis status post laparoscopic cholecystectomy. 3. Hypovolemia and dehydration, resolved. 4. Hypomagnesemia. 5. Hypokalemia. 6. Persistent transaminitis. PLAN: 1. Replace potassium and magnesium. 2. Advance diet. 3. Monitor liver function tests. 4. Consider repeat imaging if liver function fails to normalize. Nahid Clayton M.D. DR: TIEN JOB#: [id number] CC:
[2017-08-27 00:24] VITALS: BP 142/68
[2017-08-27] MEDS: D5 1/2NS w/KCl 20mEq 1,000 ML IV SCH ×2 (01:16→13:34)
[2017-08-27 04:53] VITALS: BP 136/75
[2017-08-27] MEDS: ceFAZolin sod 1 GM in D5W 55 ML IVPB SCH ×2 (06:09→13:34)
[2017-08-27 08:00] VITALS: BP 143/77
[2017-08-27] MEDS: Pantoprazole Inj IVP SCH (08:32)
[2017-08-27 08:47] LABS: ALANINE AMINOTRANSFERASE 205 U/L (12-78); ALBUMIN/GLOBULIN RATIO 0.6 (1.0-2.7); ANION GAP 9 mmol/L (5-15); ASPARTATE AMINO TRANSFERASE 114 U/L (15-37); CALCIUM 8.6 MG/DL (8.5-10.1); CARBON DIOXIDE 26 MMOL/L (21-32); CHLORIDE 105 MMOL/L (98-107); CREATININE 1.2 MG/DL (0.55-1.30); POTASSIUM 3.6 MMOL/L (3.5-5.1); SODIUM 139 MMOL/L (136-145); TOTAL PROTEIN 6.9 G/DL (6.4-8.2)
[2017-08-27 08:58] LABS: BILIRUBIN,DIRECT 0.8 MG/DL (0.0-0.3)
--- NOTE | 2017-08-27 09:20 | General Progress Note ---
Assessment/Plan Problem List: (1) Renal insufficiency ICD Codes: N28.9 - Disorder of kidney and ureter, unspecified SNOMED: 242032347, 401877990 (2) Elevated LFTs ICD Codes: R79.89 - Other specified abnormal findings of blood chemistry SNOMED: 207251386, 861094947 (3) Pancreatitis ICD Codes: K85.90 - Acute pancreatitis without necrosis or infection, unspecified SNOMED: 41161170 Qualifiers: Qualified Codes: K85.10 - Biliary acute pancreatitis without necrosis or infection (4) Transaminitis ICD Codes: R74.0 - Nonspecific elevation of levels of transaminase and lactic acid dehydrogenase [LDH] SNOMED: 399216596 (5) Gallstone pancreatitis ICD Codes: K85.10 - Biliary acute pancreatitis without necrosis or infection SNOMED: 51632343 (6) Dilated cbd, acquired ICD Codes: K83.8 - Other specified diseases of biliary tract SNOMED: 047828887 Status: stable, progressing Assessment/Plan ivf pain rx as needed antiemetics abx pos per surgery s/p suprabubic catheter change by gu stable Subjective ROS Limited/Unobtainable: No Constitutional: Reports: malaise, weakness HEENT: Reports: no symptoms Cardiovascular: Reports: no symptoms Respiratory: Reports: cough Gastrointestinal/Abdominal: Reports: no symptoms Genitourinary: Reports: no symptoms Neurologic/Psychiatric: Reports: no symptoms Endocrine: Reports: no symptoms Hematologic/Lymphatic: Reports: no symptoms Allergies: Coded Allergies: SULFA (SULFONAMIDE ANTIBIOTICS) (Verified Allergy, Unknown, 08/22/17) All Systems: reviewed and negative except above Subjective s/p lap frantz. no new complaints. tolerating pos. denies pain Objective Last 24 Hour Vital Signs Date Time Temp Pulse Resp B/P (MAP) Pulse Ox O2 Delivery O2 Flow Rate FiO2 08/27/17 08:00 98.2 58 20 143/77 98 Room Air 08/27/17 04:53 98.6 54 19 136/75 96 Room Air 08/27/17 00:24 98.4 55 19 142/68 96 Room Air 08/26/17 20:42 98.6 57 18 150/74 96 Room Air 08/26/17 16:00 97.3 53 20 160/85 97 Room Air 08/26/17 12:00 97.9 74 17 116/71 100 Room Air Intake and Output 08/27/17 08/28/17 19:00 07:00 Intake Total 240 ml Balance 240 ml Intake Oral 240 ml Laboratory Tests 08/27/17 06:30: Sodium Level 139, Potassium Level 3.6, Chloride Level 105, Carbon Dioxide Level 26, Anion Gap 9, Blood Urea Nitrogen 8, Creatinine 1.2, Estimat Glomerular Filtration Rate , Glucose Level 136H, Calcium Level 8.6, Total Bilirubin 1.6H, Direct Bilirubin 0.8H, Aspartate Amino Transf (AST/SGOT) 114H, Alanine Aminotransferase (ALT/SGPT) 205H, Alkaline Phosphatase 136H, Total Protein 6.9, Albumin 2.6L, Globulin 4.3, Albumin/Globulin Ratio 0.6L Height (Feet): 6 Height (Inches): 6.00 Weight (Pounds): 230 Objective General Appearance: WD/WN, alert EENT: normal ENT inspection, TMs normal Neck: non-tender, normal alignment, supple Cardiovascular: normal peripheral pulses, normal rate, regular rhythm Respiratory/Chest: chest wall non-tender, lungs clear, normal breath sounds Edema: no edema noted Arm (L), no edema noted Arm (R), no edema noted Leg (L), no edema noted Leg (R), no edema noted Pedal (L), no edema noted Pedal (R), no edema noted Generalized ROSALIE MORATAYA Aug 27, 2017 09:20
--- NOTE | 2017-08-27 10:18 | Urology Progress Note ---
Assessment/Plan Assessment/Plan 1. History of urinary retention with chronic suprapubic tube. 2. Benign prostatic hypertrophy history. 3. Probable neurogenic bladder. 4. Urinary tract infection and colonized. 5. Renal cyst. 6. Hydronephrosis, which may be chronic. keep sp tube, last changed 08/25 hand irrigate PRN abx as ordered ok to dc flomax cysto later Subjective Allergies: Coded Allergies: SULFA (SULFONAMIDE ANTIBIOTICS) (Verified Allergy, Unknown, 08/22/17) Subjective all noted, new sp tube draining well Objective Last 24 Hour Vital Signs Date Time Temp Pulse Resp B/P (MAP) Pulse Ox O2 Delivery O2 Flow Rate FiO2 08/27/17 08:00 98.2 58 20 143/77 98 Room Air 08/27/17 04:53 98.6 54 19 136/75 96 Room Air 08/27/17 00:24 98.4 55 19 142/68 96 Room Air 08/26/17 20:42 98.6 57 18 150/74 96 Room Air 08/26/17 16:00 97.3 53 20 160/85 97 Room Air 08/26/17 12:00 97.9 74 17 116/71 100 Room Air Intake and Output 08/27/17 08/28/17 19:00 07:00 Intake Total 240 ml Balance 240 ml Intake Oral 240 ml Microbiology Date/Time Source Procedure Growth Status 08/22/17 02:55 Urine,Clean Catch Urine Culture - Final Escherichia Coli Klebsiella Pneumoniae Complete Current Medications Medications (Trade) Dose Ordered Sig/Efren Route PRN Reason Start Time Stop Time Status Last Admin Dose Admin Acetaminophen (Tylenol) 650 mg Q4H PRN RECTAL FEVER 08/24/17 18:45 09/23/17 18:44 Bisacodyl (Dulcolax) 10 mg DAILYPRN PRN RECTAL CONSTIPATION 08/25/17 09:00 09/24/17 08:59 Cefazolin Sodium 1 gm/Dextrose 55 ml @ 110 mls/hr Q8HR IVPB 08/26/17 06:00 09/02/17 05:59 08/27/17 06:09 Dextrose/ Electrolytes 1,000 ml @ 80 mls/hr [id number] IV 08/26/17 00:00 09/25/17 00:00 08/27/17 01:16 Hydromorphone HCl (Dilaudid) 0.5 mg Q3H PRN IVP Pain Score 1-3 08/24/17 18:45 08/31/17 18:44 Hydromorphone HCl (Dilaudid) 1 mg Q3H PRN IVP pain score 4-6 08/24/17 18:45 08/31/17 18:44 Metoclopramide HCl (Reglan) 10 mg Q6H PRN IVP Nausea & Vomiting 08/24/17 18:45 09/23/17 18:44 Ondansetron HCl (Zofran) 4 mg Q6H PRN IVP Nausea & Vomiting 08/24/17 18:45 09/23/17 18:44 Pantoprazole (Protonix) 40 mg DAILY IVP 08/25/17 09:00 09/24/17 08:59 08/27/17 08:32 Ranitidine HCl (Zantac) 150 mg BEDTIME ORAL 08/22/17 21:00 09/21/17 20:59 08/26/17 20:38 Senna/Docusate Sodium (Cha-Colace) 1 ea BIDPRN PRN ORAL Unrelieved Constipation 08/25/17 20:00 09/24/17 19:59 Tamsulosin HCl (Flomax) 0.4 mg BEDTIME ORAL 08/22/17 21:00 09/21/17 20:59 08/26/17 20:37 Laboratory Tests 08/27/17 06:30: Sodium Level 139, Potassium Level 3.6, Chloride Level 105, Carbon Dioxide Level 26, Anion Gap 9, Blood Urea Nitrogen 8, Creatinine 1.2, Estimat Glomerular Filtration Rate , Glucose Level 136H, Calcium Level 8.6, Total Bilirubin 1.6H, Direct Bilirubin 0.8H, Aspartate Amino Transf (AST/SGOT) 114H, Alanine Aminotransferase (ALT/SGPT) 205H, Alkaline Phosphatase 136H, Total Protein 6.9, Albumin 2.6L, Globulin 4.3, Albumin/Globulin Ratio 0.6L Height (Feet): 6 Height (Inches): 6.00 Weight (Pounds): 230 Objective exam stable, urine yellow/xander BAMSHAD,MEMO Aug 27, 2017 10:18
[2017-08-27 12:21] VITALS: BP 158/86
--- NOTE | 2017-08-27 13:15 | General Surgery Progress Note ---
General Surgery-Progress Note Subjective Procedure Performed Laparoscopic Cholecystectomy Symptoms: improved, BM Objective Last 24 Hour Vital Signs Date Time Temp Pulse Resp B/P (MAP) Pulse Ox O2 Delivery O2 Flow Rate FiO2 08/27/17 12:21 98.0 50 20 158/86 100 Room Air 08/27/17 08:00 98.2 58 20 143/77 98 Room Air 08/27/17 04:53 98.6 54 19 136/75 96 Room Air 08/27/17 00:24 98.4 55 19 142/68 96 Room Air 08/26/17 20:42 98.6 57 18 150/74 96 Room Air 08/26/17 16:00 97.3 53 20 160/85 97 Room Air I&O Intake and Output 08/27/17 08/28/17 19:00 07:00 Intake Total 928 ml Balance 928 ml Intake Oral 600 ml IV Total 328 ml Dressing: dry Drains: none Respiratory: clear Abdomen: soft, flat, non-tender, present bowel sounds Extremities: no tenderness Laboratory Tests Test 08/27/17 06:30 Sodium Level 139 MMOL/L (136-145) Potassium Level 3.6 MMOL/L (3.5-5.1) Chloride Level 105 MMOL/L (98-107) Carbon Dioxide Level 26 MMOL/L (21-32) Anion Gap 9 mmol/L (5-15) Blood Urea Nitrogen 8 mg/dL (7-18) Creatinine 1.2 MG/DL (0.55-1.30) Estimat Glomerular Filtration Rate mL/min (>60) Glucose Level 136 MG/DL (74-106) H Calcium Level 8.6 MG/DL (8.5-10.1) Total Bilirubin 1.6 MG/DL (0.2-1.0) H Direct Bilirubin 0.8 MG/DL (0.0-0.3) H Aspartate Amino Transf (AST/SGOT) 114 U/L (15-37) H Alanine Aminotransferase (ALT/SGPT) 205 U/L (12-78) H Alkaline Phosphatase 136 U/L (46-116) H Total Protein 6.9 G/DL (6.4-8.2) Albumin 2.6 G/DL (3.4-5.0) L Globulin 4.3 g/dL Albumin/Globulin Ratio 0.6 (1.0-2.7) L Assessment Additional Comments S/P Lap Autumn Plan Additional Comments can be discharged ELVIRA BURRIS Aug 27, 2017 13:15
[2017-08-27 16:00] VITALS: BP 144/76
[2017-08-27] MEDS ORDERED: NS 275ml ONE (17:52)
[2017-08-27] MEDS ORDERED: Tubing IV Secondary IV ONE (17:52)
--- NOTE | 2017-08-27 18:14 | General Progress Note ---
Assessment/Plan Assessment/Plan Assessment - Gallstone pancreatitis - Biliary ductal dilation - OBS - s/p lap frantz Recommendations - post op care - re check LFT as oupt - diet per surgery - d/c planning Subjective Allergies: Coded Allergies: SULFA (SULFONAMIDE ANTIBIOTICS) (Verified Allergy, Unknown, 08/22/17) Subjective sitting in chair comfortable denies abd pain labs noted Objective Last 24 Hour Vital Signs Date Time Temp Pulse Resp B/P (MAP) Pulse Ox O2 Delivery O2 Flow Rate FiO2 08/27/17 16:00 98.0 78 20 144/76 99 Room Air 08/27/17 12:21 98.0 50 20 158/86 100 Room Air 08/27/17 08:00 98.2 58 20 143/77 98 Room Air 08/27/17 04:53 98.6 54 19 136/75 96 Room Air 08/27/17 00:24 98.4 55 19 142/68 96 Room Air 08/26/17 20:42 98.6 57 18 150/74 96 Room Air Intake and Output 08/27/17 08/28/17 19:00 07:00 Intake Total 1168 ml Output Total 1600 ml Balance -432 ml Intake Oral 840 ml IV Total 328 ml Output Urine Total 1600 ml # Bowel Movements 1 Laboratory Tests 08/27/17 06:30: Sodium Level 139, Potassium Level 3.6, Chloride Level 105, Carbon Dioxide Level 26, Anion Gap 9, Blood Urea Nitrogen 8, Creatinine 1.2, Estimat Glomerular Filtration Rate , Glucose Level 136H, Calcium Level 8.6, Total Bilirubin 1.6H, Direct Bilirubin 0.8H, Aspartate Amino Transf (AST/SGOT) 114H, Alanine Aminotransferase (ALT/SGPT) 205H, Alkaline Phosphatase 136H, Total Protein 6.9, Albumin 2.6L, Globulin 4.3, Albumin/Globulin Ratio 0.6L Height (Feet): 6 Height (Inches): 6.00 Weight (Pounds): 230 Objective WDWN NCAT supple CTA RRR Abd soft ND NT no edema OBS MAKSIM ZIMMERMAN Aug 27, 2017 18:14
[2017-08-27 20:10] VITALS: BP 133/78
--- NOTE | 2017-08-28 03:46 | Progress Note ---
DATE: 08/27/2017 CARDIOLOGY PROGRESS NOTE SUBJECTIVE: The patient has no nausea or vomiting. He had a bowel movement. He is tolerating oral intake. Suprapubic catheter site is draining adequately. OBJECTIVE: VITAL SIGNS: Blood pressure is 142/77, pulse rate 58, respiratory rate 20, and afebrile. NECK: Supple. LUNGS: Clear. CARDIAC: Regular. ABDOMEN: Soft. No focal tenderness. Surgical site is clean. Tube site is intact. EXTREMITIES: No edema. LABORATORY DATA: AST and ALT remained elevated. Albumin is 2.6. IMPRESSION: 1. Status post laparoscopic cholecystectomy. 2. Hypomagnesemia, status post replacement. 3. Sinus bradycardia, asymptomatic. 4. Hypertensive heart disease with controlled blood pressure. 5. Suprapubic catheter, chronic. 6. Hypokalemia, corrected. 7. Transaminitis, . PLAN: 1. Advance diet. 2. Continue current medications. 3. Stable for outpatient followup. 4. Discharge regimen reviewed. Nahid Clayton M.D. DR: Romana JOB#: [id number] CC:
--- NOTE | 2017-08-29 15:53 | Cardiology Report ---
APPROVED REPORT EKG Measurement Heart [id number] ND [id number] Normal sinus rhythm Cannot rule out Anterior infarct, age undetermined Abnormal ECG
--- NOTE | 2017-08-30 09:39 | Discharge Summary ---
Discharge Summary Hospital Course Date of Admission Aug 22, 2017 at 04:38 Date of Discharge Aug 27, 2017 at 20:03 Admitting Diagnosis pancreatitis HPI Bill Malone is a 72 year old male who was admitted on Aug 22, 2017 at 04:38 for Abd Pain Hospital Course dc summary #[id number] Discharge Medications Continued Medications: Amlodipine Besylate* (Amlodipine Besylate*) 5 Mg Tablet 5 MG ORAL DAILY, TAB Benazepril Hcl* (Benazepril Hcl*) 20 Mg Tablet 20 MG ORAL EVERY 12 HOURS, TAB Finasteride* (Proscar*) 5 Mg Tablet 5 MG ORAL DAILY, #30 TAB 0 Refills Hydrochlorothiazide* (Hydrochlorothiazide*) 25 Mg Tablet 25 MG ORAL DAILY, TAB Omeprazole (Omeprazole) 20 Mg Capsule.dr 20 MG ORAL DAILY, CAP Tamsulosin Hcl (Tamsulosin Hcl*) 0.4 Mg Cap.er.24h 0.4 MG ORAL BEDTIME, CAP Discharge Condition Upon Discharge: stable Discharge Disposition Patient was discharged home with services Discharge Diagnoses: Discharge Instructions Discharge Instructions Special Instructions I have been assigned to complete a D/C Summary on this account. I was not involved in the patient management Keya Smith NP (Vanchtein) Aug 30, 2017 09:39
--- NOTE | 2017-08-30 17:30 | Discharge Summary 2 SIG ---
DATE OF ADMISSION: 08/22/2017 DATE OF DISCHARGE: 08/27/2017 REASON FOR ADMISSION: 72-year-old male with history of hypertension, obstructive uropathy, status post suprapubic catheter presented with complaint of abdominal pain. The patient by himself was a poor historian due to dementia. His caregiver called paramedics. Upon evaluation in the emergency room found elevated lipase , transaminitis, renal failure . Potassium -3.2. Leukocytosis -11.8. CT of the abdomen and pelvis revealed no free air or free fluid, markedly distended urinary bladder, despite presence of suprapubic catheter, mild bilateral hydronephrosis , right more than left. Small noncalcified stones in the gallbladder, common bile duct dilatation up to 1.2 centimeter. The patient was admitted with diagnosis of pancreatitis, transaminitis, and suprapubic catheter. HOSPITAL STAY: The patient was admitted. The patient was kept NPO. The patient was started on IV fluids and empiric antibiotics. Surgery and GI consults were requested. According to surgeon, the patient had gallstone pancreatitis. Plan for laparoscopic cholecystectomy. GI seen and evaluated the patient. The patient subsequently undergone endoscopic retrograde cholangiopancreatography on08/24/2017 with sphincterectomy and stone removal. Electrolytes replacement done. The patient was on empiric antibiotic. Antiemetic provided as needed. GI prophylaxis provided.. Hemoglobin and hematocrit were closely monitored. The patient subsequently undergone laparoscopic cholecystectomy and after surgery started slowly on diet, which was advanced as tolerated. Pain management was provided. The patient was working with physical and occupational therapists. Lipase, amylase and LFTs were closely monitored. No further leukocytosis. Hemoglobin and hematocrit stable. Renal parameters down to normal. Prior to discharge, BUN 8 and creatinine 1.2, acute renal failure was likely secondary to dehydration. Total and direct bilirubin trending down. AST and ALT still remained elevated. Amylase and lipase down to normal. Urinalysis revealed evidence of polymicrobial urinary tract infection with Escherichia coli and Klebsiella pneumoniae. The patient status post treatment with antibiotics. The patient had evidence of hypertensive heart disease with controlled blood pressure. Urologist seen and evaluated the patient due to the evidence of urinary retention despite the presence of suprapubic catheter as was evident on CT of the abdomen. Suprapubic catheter was changed on 08/25/2017. Urologist recommended hand irrigation as needed and consider Flomax discontinuation since the patient already have a suprapubic catheter. Recommended cystoscopy as outpatient. According to urologist, the patient likely have chronic hydronephrosis. According to judge's clerk, the patient had a chronic diastolic congestive heart failure. However, no evidence of exacerbation at this admission. Blood pressure was stable. The patient was slowly started on diet, advanced as tolerated and was able to tolerate diet. Nutritional supplements were provided. The patient was stable for discharge home with home health services. Follow up with the primary medical doctor. FINAL DIAGNOSES: 1. Gallstone pancreatitis. 2. Transaminitis. 3. Choledocholithiasis. 4. Acute cholecystitis status post endoscopic retrograde cholangiopancreatography with sphincterotomy and stone removal. 5. Common bile duct dilatation. 6. Status post laparoscopic cholecystectomy. 7. Electrolyte imbalances (hypomagnesemia and hypokalemia). 8. Polymicrobial urinary tract infection with Escherichia coli and Klebsiella, s/p treatment. 9. Toxic and metabolic encephalopathy with functional decline. 10. Acute renal failure likely secondary to dehydration, resolved. 11. Dehydration resulting in hypovolemia, resolved. 12. Hypertensive heart disease with controlled blood pressure. 13. History of urinary retention with chronic suprapubic catheter. 14. Benign prostatic hypertrophy. 15. Chronic hydronephrosis. 16. Probable neurogenic bladder. 17. Moderate to severe protein-calorie malnutrition. DISCHARGE MEDICATIONS: See medication reconciliation list. DISCHARGE INSTRUCTIONS: The patient discharged home with home health services. Follow up with primary medical doctor. Nahid Clayton M.D. I have been assigned to dictate discharge summary on this account and I was not involved in the patient's management. [facility] DR: KATELYN JOB#: [id number] CC: EMMA
== END 2017-08-27 20:03 | disposition home health service (06) | DRG 417 ==
LOC: EDBD 01:56 → EMR 02:30 → 3E 04:38 → EDBEDREQ 04:51
PROC: 0FT44ZZ Resection of Gallbladder, Percutaneous Endoscopic Approach (ICD-10-PCS; principal; 2017-08-24 08:00)
PROC: 0FC98ZZ Extirpation of Matter from Common Bile Duct, Via Natural or Artificial Opening Endoscopic (ICD-10-PCS; principal; 2017-08-24 08:00)
DX: K85.10 Biliary acute pancreatitis without necrosis or infection (principal); E43 Unspecified severe protein-calorie malnutrition; N17.9 Acute kidney failure, unspecified; G92 Toxic encephalopathy; I11.0 Hypertensive heart disease with heart failure; I50.32 Chronic diastolic (congestive) heart failure; I11.9 Hypertensive heart disease without heart failure; E86.0 Dehydration; K80.00 Calculus of gallbladder with acute cholecystitis without obstruction; K80.43 Calculus of bile duct with acute cholecystitis with obstruction; N39.0 Urinary tract infection, site not specified; N13.30 Unspecified hydronephrosis; R73.9 Hyperglycemia, unspecified; E87.6 Hypokalemia; R07.89 Other chest pain; N40.0 Benign prostatic hyperplasia without lower urinary tract symptoms; R00.1 Bradycardia, unspecified; N31.9 Neuromuscular dysfunction of bladder, unspecified; B96.20 Unspecified Escherichia coli [E. coli] as the cause of diseases classified elsewhere; B96.1 Klebsiella pneumoniae [K. pneumoniae] as the cause of diseases classified elsewhere; N28.1 Cyst of kidney, acquired; E83.42 Hypomagnesemia; Z68.26 Body mass index [BMI] 26.0-26.9, adult
CPT/HCPCS: 36415; 74177; 74328; 76000; 76700; 80053; 80061; 80076; 81003; 82150; 82248; 82550; 82553; 82962; 82977; 83690; 83735; 84443; 84484; 85025; 85610; 85730; 87086; 87181; 93005; 94003; 94150; 99285; J2250; J2405; J8499